=== PATIENT | female | born 1940 | race Caucasian/White ===

== ENCOUNTER 2018-01-23 18:12 | Inpatient (IN) | END 2018-01-25 14:25 | disposition home or self-care (01) | DRG 392 ==

== ENCOUNTER 2018-01-30 15:02 | Emergency (ER) | END 2018-01-30 19:08 | disposition home or self-care (01) ==

== ENCOUNTER 2018-05-19 12:56 | Inpatient (IN) | payer MEDICARE, OTHER ==
[~2018-05-19] VITALS: Ht 162.6 cm; Wt 68.0 kg
[~2018-05-19 12:56] MED LIST: AMLO5TAB4 PO; ASPI-817 PO; CHOL500010 PO; CIPR500T4 PO; CLON1TAB13 PO; CYAN-23 PO; DONE23TA12 PO; DULO60CA59 PO; LEVO50TA7 PO; MEMA10TA PO; METF100010 PO; METR500T PO; OLME1TAB83 PO; QUET25TA33 PO
[2018-05-19] MEDS ORDERED: THIAMINE 100 MG TAB PO STA (13:07)
--- NOTE | 2018-05-19 13:46 | ERD ---
ER Documentation Chief Complaint Chief Complaint BIB RA39: ALOC; 'may have taken double dose of home meds' per family HPI 77-year-old female history of diabetes, hypertension, Alzheimer's disease, diverticulitis, depression and remote TIA brought to the ED via rescue ambulance for evaluation of altered mental status. Patient was last seen normal when she went to sleep on the couch at approximately 1 AM. Patient was found appr oximately 45 minutes prior to arrival not responding normally. Family suspects the patient had taken an overdose of her antihypertensive and/or diabetic medication but this is not confirmed. Patient found by paramedics sitting on the couch not responding to verbal stimuli but moving all extremities and localizing pain. Prehospital Accu-Chek was 110 mg/dL. Patient is unable to provide any further history due to clinical condition and cognitive impairment. ROS Review of systems unobtainable except as per HPI due to the patient's cognitive impairment. Medications Home Meds Reported Medications Donepezil* (Donepezil*) 23 Mg Tablet, 23 MG PO DAILY, #30 TAB 01/30/18 Olmesartan/Hydrochlorothiazide (Olmesartan-Hctz 40-12.5 mg Tab) 1 Each Tablet, 1 EACH PO DAILY, TAB 01/30/18 Amlodipine Besylate* (Norvasc*) 5 Mg Tablet, 5 MG PO DAILY, TAB 01/30/18 Cholecalciferol (Vitamin D3) 5,000 Unit Tablet, 5000 UNIT PO DAILY, TAB 01/30/18 Metformin Hcl* (Metformin Hcl*) 1,000 Mg Tablet, 1000 MG PO WITH BREAKFAST DINNE, #60 TAB 01/30/18 Levothyroxine Sodium* (Levothyroxine Sodium*) 50 Mcg Tablet, 50 MCG PO BEFORE BREAKFAST, #30 TAB 01/30/18 Duloxetine Hcl* (Duloxetine Hcl*) 60 Mg Capsule.dr, 60 MG PO QHS, #30 CAP 01/30/18 Memantine* (Namenda*) 10 Mg Tablet, 10 MG PO BID, #60 TAB 01/30/18 Quetiapine Fumarate* (Quetiapine Fumarate*) 25 Mg Tablet, 25 MG PO HS, TAB 01/30/18 Aspirin* (Aspirin* EC) 81 Mg Tablet.dr, 81 MG PO DAILY, TAB 01/30/18 Clonazepam* (Clonazepam*) 1 Mg Tablet, 1 MG PO QHS PRN for ANXIETY, TAB 01/30/18 Discontinued Reported Medications Cyanocobalamin (Vitamin B-12) (Vitamin B-12) 1,000 Mcg Capsule, 1000 MCG PO DAILY, CAP 01/30/18 Discontinued Scripts Metronidazole* (Flagyl*) 500 Mg Tablet, 500 MG PO TID for 7 Days, #21 TAB Prov:JD DESAI 01/25/18 Ciprofloxacin Hcl* (Ciprofloxacin Hcl*) 500 Mg Tablet, 500 MG PO BID@06,18 for 7 Days, #14 TAB Prov:JD DESAI 01/25/18 Allergies Allergies: Coded Allergies: No Known Drug Allergy (Verified Allergy, Mild, 05/19/18) PMhx/Soc Reviewed in chart. As per HPI. Lives with family. History of Surgery: No Anesthesia Reaction: No Hx Neurological Disorder: No Hx Respiratory Disorders: No Hx Cardiac Disorders: Yes (htn) Hx Psychiatric Problems: Yes (depression, alzheimer) Hx Miscellaneous Medical Probl: Yes (dm) Hx Alcohol Use: No Hx Substance Use: No Hx Tobacco Use: No FmHx Mother: Diabetes, coronary artery disease and lung cancer. Daughter: Diabetes and coronary artery disease. Physical Exam Vitals Temperature: 99.3. Pulse: 77. Respiration: 16. Blood pressure: 121/61. O2 saturation 96% on room air. Physical Exam Const: Localizes pain. GCS: 2/2/5 Head: Atraumatic Eyes: Pupils equal reactive to light, extraocular movements are intact. Normal Conjunctiva ENT: Normal External Ears, Nose and Mouth. Neck: Carotids 2+ bilaterally without bruits. No lymphadenopathy or masses. No thyroid goiter. No meningismus. Resp: Breath sounds are equal and clear to auscultation bilaterally Cardio: Regular rate and rhythm, no murmurs Abd: Soft, obese, non tender, non distended. No rebound or guarding. Normal bowel sounds Skin: No petechiae or rashes Back: No midline tenderness, deformity or step-off. Ext: No cyanosis, or edema. Pulses 4+ in all extremities. Neur: Localizes pain. GCS 9. DTRs are symmetrical. Physical examination is limited due to the constraints imposed by the patient's cognitive impairment. Result Diagram: 05/20/18 0505 05/20/18 0505 Results 24 hrs Laboratory Tests Test 05/19/18 13:07 05/19/18 13:08 05/19/18 13:12 05/19/18 13:14 Urine Color YELLOW Urine Clarity SLIGHTLY CLOUDY Urine pH 5.0 Urine Specific 1.017 [place] Urine Ketones NEGATIVE mg/dL Urine Nitrite NEGATIVE mg/dL Urine Bilirubin NEGATIVE mg/dL Urine NEGATIVE mg/dL Urobilinogen Urine Leukocyte NEGATIVE Keren/ul Esterase Urine Microscopic 0 /HPF RBC Urine Microscopic 2 /HPF WBC Urine Bacteria FEW /HPF Urine Hemoglobin NEGATIVE mg/dL Urine Glucose NEGATIVE mg/dL Urine Total NEGATIVE mg/dl Protein Urine Opiates Negative Screen Urine Negative Barbiturates Urine Negative Amphetamines Screen Urine Negative Benzodiazepines Screen Urine Cocaine Negative Screen Urine Negative Cannabinoids Bedside Glucose 94 mg/dL White Blood Count 8.3 10^3/ul Red Blood Count 4.10 10^6/ul Hemoglobin 12.3 g/dl Hematocrit 39.3 % Mean Corpuscular 95.9 fl Volume Mean Corpuscular 30.0 pg Hemoglobin Mean Corpuscular 31.3 g/dl Hemoglobin Concen t Red Cell 13.6 % Distribution Width Platelet Count 154 10^3/UL Mean Platelet 13.2 fl Volume Immature 0.400 % Granulocytes % Neutrophils % 50.9 % Lymphocytes % 34.1 % Monocytes % 10.2 % Eosinophils % 3.6 % Basophils % 0.8 % Nucleated Red 0.0 /100WBC Blood Cells % Immature 0.030 10^3/ul Granulocytes # Neutrophils # 4.2 10^3/ul Lymphocytes # 2.8 10^3/ul Monocytes # 0.8 10^3/ul Eosinophils # 0.3 10^3/ul Basophils # 0.1 10^3/ul Nucleated Red 0.0 10^3/ul Blood Cells # Prothrombin Time 12.6 Sec Prothrombin Time 1.0 Ratio INR International 0.93 Normalized Ratio Activated 30.4 Sec Partial Thrombopl ast Time Sodium Level 138 mmol/L Potassium Level 4.5 mmol/L Chloride Level 104 mmol/L Carbon Dioxide 24 mmol/L Level Anion Gap 10 Blood Urea 19 mg/dl Nitrogen Creatinine 0.93 mg/dl Est Glomerular mL/min Filtrat Rate mL/min Glucose Level 97 mg/dl Calcium Level 9.5 mg/dl Total Bilirubin 0.1 mg/dl Direct Bilirubin 0.00 mg/dl Indirect 0.1 mg/dl Bilirubin Aspartate Amino 27 IU/L Transf (AST/SGOT) Alanine 15 IU/L Aminotransferase (ALT/SGPT) Alkaline 70 IU/L Phosphatase Troponin I < 0.012 ng/ml Total Protein 7.3 g/dl Albumin 4.1 g/dl Globulin 3.20 g/dl Albumin/Globulin 1.28 Ratio Salicylates Level < 1.0 mg/dl Acetaminophen < 10.0 ug/ml Level Ethyl Alcohol < 10.0 mg/dl Level POC Venous 2.5 mmol/L Lactate Test 05/19/18 15:23 POC Venous 2.5 mmol/L Lactate Current Medications Medications Dose Sig/Shena Start Time Status Last (Trade) Ordered Route PRN Stop Time Admin Dose Reason Admin Thiamine 100 mg ONCE STAT 05/19/18 DC HCl PO 13:07 (Vitamin B1) 05/19/18 13:54 Thiamine HCl 101 ml @ Q2H2M ONCE 05/19/18 DC 100 50 mls/hr IVPB 13:52 mg/Sodium 05/19/18 14:24 Chloride Sodium 500 ml @ Q1H STAT 05/19/18 DC 05/19/18 Chloride 500 mls/hr IV 14:16 14:32 05/19/18 15:15 Aspirin 325 mg ONCE ONCE 05/19/18 DC 05/19/18 (Aspirin) PO 14:30 14:32 05/19/18 14:31 Procedures/MDM DOCUMENTS REVIEWED: ED nurse, prior ED and prior admission in 2009 for TIA. EKG: Time: 1257. Sinus rhythm. Ventricular rate 67. Normal OK and QRS. No acute ST-T wave changes. No ectopy. T wave inversions lead V1 and V2. My Interpretation IMAGING: PROCEDURE: XR Chest. CLINICAL INDICATION: Altered mental status . Dyspnea TECHNIQUE: Single frontal chest x-ray. COMPARISON: None. FINDINGS: The lungs are clear of acute infiltrates, edema, effusions, or masses. Calcific atherosclerosis of the aorta is present.. There is mild cardiomegaly.. Degenerative disk changes of the spine are present. . IMPRESSION: No acute cardiopulmonary disease. Mild cardiomegaly with calcified aorta. RPTAT: QQ .Marshall Holman MD, MD Date Time Electronically viewed and signed by .Marshall Holman MD, MD on 05/19/2018 13:32 .L/ PROCEDURE: Noncontrast CT Head. CLINICAL INDICATION: Altered level of consciousness. TECHNIQUE: Noncontrast CT of the head was obtained. The administered radiation dose was CTDI vol = 39.46 mGy, DLP = 634.23 mGy-cm. One or more of the following dose reduction techniques were used: Automated exposure control, Ad justment of the mA and/or kV according to patient size, or Use of iterative reconstruction technique. DICOM images are available. COMPARISON: There are no similar studies submitted for comparison. FINDINGS: There is moderate generalized cerebral volume loss. There is mild periventricular hypoattenuation suggesting chronic microvascular ischemic changes. There are mild vascular calcifications within the intracranial carotid arteries. There is a chronic left thalamic lacunar infarction. There is no loss of hirsch-white differentiation to suggest acute territorial infarction. There is no acute intracranial hemorrhage or extra-axial fluid collection. There is no mass effect. No midline shift is identified. The patient is status post bilateral lens surgery. There is complete right sphenoid sinus mucosal thickening with mucoperiosteal thickening suggesting chronic sinusitis. No destructive osseous lesion is identified. IMPRESSION: 1. No acute intracranial hemorrhage or extra-axial fluid collection. 2. Moderate generalized cerebral volume loss. 3. Mild chronic microvascular ischemic changes. 4. Chronic left thalamic lacunar infarction. 5. Chronic right sphenoid sinusitis. Further findings as detailed above. RPTAT: HVF .Fermin Mendez MD, MD Date Time Electronically viewed and signed by .Fermin Mendez MD, on 05/19/2018 13:29 .F/ ED COURSE: 14:00. Patient is alert and responsive. Further history obtained Via Internet translation service. Patient patient reports pain in her "soul". Denies headache, visual changes, focal weakness or numbness. Denies complains of pain in the area where a sternal rub was performed but no chest pain, palpitations or shortness of breath. No abdominal pain, nausea, vomiting, diarrhea or constipation. Denies dysuria or polyuria. Patient patient is oriented to person and place. Admits that she has a bad memory and does not recall what happened earlier today or events leading up to her arrival in the hospital. 15:04. Family has arrived and provided supplemental history. Patient was in her usual state of health last night when she went to sleep at approximately 1 AM on the couch. Patient was unarousable when family attempted to wake her around noon so they called 911. She currently seems back to baseline. [employer] DECISION MAKIN-year-old female history of diabetes, hypertension, Alzheimer's disease, diverticulitis, depression and remote TIA brought to the ED via rescue ambulance for evaluation of altered mental status. CBC reveals no evidence of leukocytosis, anemia or thrombocytopenia. Chemistry is negative for electrolyte abnormalities, renal insufficiency or hyper/hypoglycemia. Urinalysis is negative for infection. Chest x-ray reveals no evidence of congestive heart failure or pneumonia. EKG to evaluate for pneumonia and congestive heart failure is unremarkable. CT scan of the brain admit to evaluate for bleed, infarct, mass and hydrocephalus reveals atrophy and chronic left thalamic lacunar infarct but is unremarkable for an acute process. Patient presents with acute encephalopathy of uncertain etiology possibly related to her underlying dementia. In the ED she returned to baseline. No focal deficit, symptoms or signs of CVA/TIA. No evidence of any acute infectious process or criteria for systemic inflammatory response syndrome or sepsis. History of hypothyroidism and TSH is pending but myxedema is unlikely. No hypoglycemia. Admit to telemetry for further evaluation and management. PATIENT CARE TRANSITIONED: Time: 15:20, Dr. Angel. Counseled patient and family regarding diagnosis, diagnostic results and plan for admission. Departure Diagnosis: Primary Impression: Acute encephalopathy Additional Impressions: Diabetes mellitus type 2 in obese Chronic dementia Dementia behavioral disturbance: without behavioral disturbance Qualified Codes: F03.90 - Unspecified dementia without behavioral disturbance Essential hypertension History of hypothyroidism Condition: Serious STEVEN CALDERON MD May 19, 2018 13:46
[2018-05-19] MEDS ORDERED: THIAMINE 100 MG in SOD CHLORIDE 0.9% 100 ML IVPB ONE (13:52)
[2018-05-19] MEDS ORDERED: SOD CHLORIDE 0.9% 500 ML IV STA (14:16)
[2018-05-19] MEDS ORDERED: ASPIRIN 325 MG TAB PO ONE (14:30)
[2018-05-19] MEDS ORDERED: ONDANSETRON 4 MG INJ IV PRN ×3 (15:30→20:00)
[2018-05-19] MEDS ORDERED: ACETAMINOPHEN 325 MG TAB PO PRN ×3 (15:30→20:00)
[2018-05-19 16:32] VITALS: BP 134/65; PULSE 72; RESP 18
[2018-05-19 16:47] VITALS: Ht 162.6 cm; Wt 68.0 kg
[2018-05-19 17:59] VITALS: PULSE 66
--- NOTE | 2018-05-19 18:34 | NUR ---
ADMISSION NOTES PATIENT WAS ADMITTED AT THE TELEMETRY, AOX 1. NO SOB NOTED, DENIES PAIN AND DISCOMFORT. LACTIC ACID WENT UP FROM 2.[address] LUNA REGARDING LATEST RESULT. AWAITING FOR RESPONSE. Addendum: 05/19/18 at 1852 by GREGORY BROWN RN DR LUNA STATED TO NOTIFY DR. MARQUEZ. WAS NOTIFIED REGARDING LACTIC ACID . BOTH MD'S ( JIMMY AND CHERYL AWARE.
[2018-05-19] MEDS ORDERED: SOD CHLORIDE 0.9% 1,000 ML IV SCH (19:42)
[2018-05-19 19:43] VITALS: BP 131/63; PULSE 63; RESP 18
--- NOTE | 2018-05-19 19:44 | HP ---
Date/Time of Note Date/Time of Note DATE: 05/19/18 TIME: 19:36 Assessment/Plan VTE Prophylaxis SCD applied (from Nsg): Yes Pharmacological prophylaxis: LMWH Pharm contraindication: other Lines/Catheters IV Catheter Type (from Nrsg): Peripheral IV Urinary Cath still in place: No Assessment/Plan Hospital Course 1. Acute encephalopathy on chronic dementia Diagnostics and labs are negative except for lactic acid which is elevated Empiric Rocephin for possible UTI IV fluids Follow-up on cultures Patient mentation has improved per family 2. Diabetes Continue home regimen, sliding scale 3. Hypothyroidism Continue home meds 4. Hypertension Continue home meds Prophylaxis: Lovenox Result Diagram: 05/19/18 1312 05/19/18 1312 Results 24hrs Laboratory Tests Test 05/19/18 13:07 05/19/18 13:08 05/19/18 13:12 05/19/18 13:14 Urine Color YELLOW Urine Clarity SLIGHTLY CLOUDY A Urine pH 5.0 Urine Specific 1.017 [place] Urine Ketones NEGATIVE Urine Nitrite NEGATIVE Urine Bilirubin NEGATIVE Urine NEGATIVE Urobilinogen Urine Leukocyte NEGATIVE Esterase Urine Microscopic 0 RBC Urine Microscopic 2 WBC Urine Bacteria FEW A Urine Hemoglobin NEGATIVE Urine Glucose NEGATIVE Urine Total NEGATIVE Protein Urine Opiates Negative Screen Urine Negative Barbiturates Urine Negative Amphetamines Screen Urine Negative Benzodiazepines Screen Urine Cocaine Negative Screen Urine Negative Cannabinoids Bedside Glucose 94 White Blood Count 8.3 # Red Blood Count 4.10 L Hemoglobin 12.3 Hematocrit 39.3 Mean Corpuscular 95.9 Volume Mean Corpuscular 30.0 Hemoglobin Mean Corpuscular 31.3 L Hemoglobin Concen t Red Cell 13.6 Distribution Width Platelet Count 154 # Mean Platelet 13.2 H Volume Immature 0.400 Granulocytes % Neutrophils % 50.9 Lymphocytes % 34.1 Monocytes % 10.2 Eosinophils % 3.6 Basophils % 0.8 Nucleated Red 0.0 Blood Cells % Immature 0.030 Granulocytes # Neutrophils # 4.2 Lymphocytes # 2.8 Monocytes # 0.8 Eosinophils # 0.3 Basophils # 0.1 Nucleated Red 0.0 Blood Cells # Prothrombin Time 12.6 Prothrombin Time 1.0 Ratio INR International 0.93 Normalized Ratio Activated 30.4 Partial Thrombopl ast Time Sodium Level 138 Potassium Level 4.5 Chloride Level 104 Carbon Dioxide 24 Level Anion Gap 10 Blood Urea 19 Nitrogen Creatinine 0.93 Est Glomerular Filtrat Rate mL/min Glucose Level 97 Calcium Level 9.5 Total Bilirubin 0.1 L Direct Bilirubin 0.00 Indirect 0.1 Bilirubin Aspartate Amino 27 Transf (AST/SGOT) Alanine 15 Aminotransferase (ALT/SGPT) Alkaline 70 Phosphatase Troponin I < 0.012 Total Protein 7.3 Albumin 4.1 Globulin 3.20 Albumin/Globulin 1.28 Ratio Salicylates Level < 1.0 L Acetaminophen < 10.0 L Level Ethyl Alcohol < 10.0 H Level POC Venous 2.5 *H Lactate Test 05/19/18 15:23 05/19/18 17:18 POC Venous 2.5 *H Lactate Lactic Acid Level 2.8 *H HPI/ROS Admit Date/Time Admit Date/Time May 19, 2018 at 15:23 Hx of Present Illness Patient is a 77-year-old [place] female with a history of dementia, hyp ertension, hypothyroidism, diabetes and diverticulitis. Patient presents with acute mental status changes relative to her baseline. In the ER patient's mentation did improve, workup including chest x-ray, CT brain and labs were negative. According to family patient still slightly confused relative to her baseline but has improved. Patient is unable to provide any history and history is obtained from previous documentation. ROS Confused PMH/Family/Social Past Medical History As per HPI Medications Current Medications Influenza Virus Vaccine Quadrival (Fluzone) 0.5 ml ONCE ONCE IM* ; Start at 10:00; Stop 05/20/18 at 10:01 Coded Allergies: No Known Drug Allergy (Verified Allergy, Mild, 05/19/18) Family History Significant Family History: no pertinent family hx Social History Smoking Status: Never smoker Exam/Review of Systems Vital Signs Vitals Vital Signs Date Temp Pulse Resp B/P (MAP) Pulse Ox O2 O2 Flow FiO2 Time Delivery Rate 05/19/18 66 17:59 05/19/18 97.7 18 134/65 94 Room Air 16:32 (88) Exam Psych: confusion Respiratory: clear to auscultation Cardiovascular: regular rate and rhythm Gastrointestinal: soft; No distended Musculoskeletal: nl extremities to inspection LUNA LUNA May 19, 2018 19:44
[2018-05-19 20:00] VITALS: PULSE 59
[2018-05-19] MEDS ORDERED: MAGNESIUM HYDROXIDE 30ML CUP PO PRN (20:00)
[2018-05-19] MEDS ORDERED: clonAZEPAM 0.5 MG TAB PO PRN (20:00)
[2018-05-19] MEDS ORDERED: morphine 2 MG INJ IV PRN (20:00)
[2018-05-19] MEDS ORDERED: DOCUSATE SODIUM 100 MG CAP PO PRN ×2 (20:00)
[2018-05-19] MEDS ORDERED: GLUCAGON 1 MG INJ IM PRN (20:00)
[2018-05-19] MEDS ORDERED: BISACODYL (EC) 5 MG TAB PO PRN (20:00)
[2018-05-19] MEDS ORDERED: NACL 0.9% 3 ML SYG IV SCH ×2 (20:00)
[2018-05-19] MEDS ORDERED: ACETAMINOPHEN 650 MG SUPP PR PRN (20:00)
[2018-05-19] MEDS ORDERED: GLUCOSE GEL 15 GRAM TUBE PO PRN ×2 (20:00)
[2018-05-19] MEDS ORDERED: CEFTRIAXONE 1 GM/50 ML (PMX) 50 ML IVPB SCH (20:00)
[2018-05-19] MEDS ORDERED: GLUCOSE GEL 15 GRAM TUBE BUCCAL PRN (20:00)
[2018-05-19] MEDS ORDERED: HYDROCODONE/APAP (5/325) TAB PO PRN ×2 (20:00)
[2018-05-19] MEDS ORDERED: CYANOCOBALAMIN 500 MCG TAB PO SCH (20:00)
[2018-05-19] MEDS ORDERED: DEXTROSE 50% 50 ML SYRINGE IV PRN ×2 (20:00)
[2018-05-19] MEDS ORDERED: morphine 4 MG/ML VIAL IV PRN (20:13)
[2018-05-19] MEDS: INSULIN ASPART [NOVOLOG] 3 ML PEN SC SCH (20:25)
[2018-05-19] MEDS: SOD CHLORIDE 0.45% 1,000 ML IV SCH (20:54)
[2018-05-19] MEDS: MEMANTINE 10 MG TAB PO SCH (20:55)
[2018-05-19] MEDS ORDERED: DULOXETINE 30 MG CAP DR PO SCH (21:00)
[2018-05-19] MEDS ORDERED: QUETIAPINE 25 MG TAB PO SCH (21:00)
[2018-05-19 23:43] VITALS: BP_SYST 138; BP_SYST 144; BP_SYST 146; BP_DIAS 63; BP_DIAS 65; BP_DIAS 84; PULSE 87; RESP 18
[2018-05-20] VITALS: PULSE 62
[2018-05-20] MEDS ORDERED: ACCU-CHEK XX SCH (02:00)
--- NOTE | 2018-05-20 03:14 | NUR ---
NOTES RESTING ON BED AND DR LUNA AND DR VERDUZCO INFORMED THEM THAT THE PT NEEDS ADMISSION ORDER. ADMISSION NOTED AND CARRIED OUT SOON IT WAS IN THE COMPUTER. ORTHOSTATIC B/P DONE. NO CHANGES NOTED. IV FLUID STARTED AND PT INSTRUCTED TO CALL THE NURSE EVERY SHE NEEDS TO GET UP.
[2018-05-20 03:55] VITALS: BP 134/64; PULSE 67; RESP 18
[2018-05-20 04:00] VITALS: PULSE 71
[2018-05-20] MEDS: SOD CHLORIDE 0.45% 1,000 ML IV SCH (05:41)
--- NOTE | 2018-05-20 06:02 | NUR ---
NOTES FOR MRI OF THE BRAIN TODAY. ALL HER NEEDS ATTENDED AND ANTICIPATED.
[2018-05-20] MEDS ORDERED: LEVOTHYROXINE 50 MCG TAB PO SCH (07:00)
[2018-05-20 07:28] VITALS: BP 138/68; PULSE 62; RESP 20
[2018-05-20 08:00] VITALS: PULSE 63
[2018-05-20] MEDS: INSULIN ASPART [NOVOLOG] 3 ML PEN SC SCH ×2 (08:00→12:00)
[2018-05-20] MEDS ORDERED: metFORMIN 500 MG TAB PO SCH (08:00)
--- NOTE | 2018-05-20 08:41 | PN ---
Date/Time of Note Date/Time of Note DATE: 05/20/18 TIME: 08:41 Assessment/Plan VTE Prophylaxis Risk score (from [facility] [place])>0 risk: 4 SCD applied (from [facility] [place]): No SCD contraindicated: patient refusal Pharmacological prophylaxis: LMWH Lines/Catheters IV Catheter Type (from [facility] Peripheral IV Urinary Cath still in place: No Assessment/Plan Assessment/Plan 1. Acute encephalopathy on chronic dementia- resolved - Patient back to baseline per daughter and refusing all treatment. Discussed possible TIA and family aware need to continue on aspirin. Advised to use fish oil as well given elevated TG - no signs of infection given UA negative, remains afebrile, and nl WBC - influenza negative as well 2. Diabetes - Continue on metformin, sliding scale 3. Hypothyroidism - continue levothyroxine 4. Hypertension - stable. continue home meds 5. Disposition - Medically stable for discharge home Result Diagram: 05/20/18 0505 05/20/18 0505 Results 24hrs Laboratory Tests Test 05/19/18 13:07 05/19/18 13:08 05/19/18 13:12 05/19/18 13:14 Urine Color YELLOW Urine Clarity SLIGHTLY CLOUDY A Urine pH 5.0 Urine Specific 1.017 [place] Urine Ketones NEGATIVE Urine Nitrite NEGATIVE Urine Bilirubin NEGATIVE Urine NEGATIVE Urobilinogen Urine Leukocyte NEGATIVE Esterase Urine Microscopic 0 RBC Urine Microscopic 2 WBC Urine Bacteria FEW A Urine Hemoglobin NEGATIVE Urine Glucose NEGATIVE Urine Total NEGATIVE Protein Urine Opiates Negative Screen Urine Negative Barbiturates Urine Negative Amphetamines Screen Urine Negative Benzodiazepines Screen Urine Cocaine Negative Screen Urine Negative Cannabinoids Bedside Glucose 94 White Blood Count 8.3 # Red Blood Count 4.10 L Hemoglobin 12.3 Hematocrit 39.3 Mean Corpuscular 95.9 Volume Mean Corpuscular 30.0 Hemoglobin Mean Corpuscular 31.3 L Hemoglobin Concen t Red Cell 13.6 Distribution Width Platelet Count 154 # Mean Platelet 13.2 H Volume Immature 0.400 Granulocytes % Neutrophils % 50.9 Lymphocytes % 34.1 Monocytes % 10.2 Eosinophils % 3.6 Basophils % 0.8 Nucleated Red 0.0 Blood Cells % Immature 0.030 Granulocytes # Neutrophils # 4.2 Lymphocytes # 2.8 Monocytes # 0.8 Eosinophils # 0.3 Basophils # 0.1 Nucleated Red 0.0 Blood Cells # Prothrombin Time 12.6 Prothrombin Time 1.0 Ratio INR International 0.93 Normalized Ratio Activated 30.4 Partial Thrombopl ast Time Sodium Level 138 Potassium Level 4.5 Chloride Level 104 Carbon Dioxide 24 Level Anion Gap 10 Blood Urea 19 Nitrogen Creatinine 0.93 Est Glomerular Filtrat Rate mL/min Glucose Level 97 Calcium Level 9.5 Total Bilirubin 0.1 L Direct Bilirubin 0.00 Indirect 0.1 Bilirubin Aspartate Amino 27 Transf (AST/SGOT) Alanine 15 Aminotransferase (ALT/SGPT) Alkaline 70 Phosphatase Troponin I < 0.012 Total Protein 7.3 Albumin 4.1 Globulin 3.20 Albumin/Globulin 1.28 Ratio Salicylates Level < 1.0 L Acetaminophen < 10.0 L Level Ethyl Alcohol < 10.0 H Level POC Venous 2.5 *H Lactate Test 05/19/18 15:23 05/19/18 17:18 05/19/18 20:06 05/20/18 05:05 POC Venous 2.5 *H Lactate Lactic Acid Level 2.8 *H Bedside Glucose 100 White Blood Count 9.5 Red Blood Count 3.74 L Hemoglobin 11.2 L Hematocrit 35.4 L Mean Corpuscular 94.7 Volume Mean Corpuscular 29.9 Hemoglobin Mean Corpuscular 31.6 L Hemoglobin Concen t Red Cell 13.5 Distribution Width Platelet Count 155 Mean Platelet 14.0 H Volume Immature 0.300 Granulocytes % Neutrophils % 61.2 Lymphocytes % 25.3 Monocytes % 9.2 Eosinophils % 3.3 Basophils % 0.7 Nucleated Red 0.0 Blood Cells % Immature 0.030 Granulocytes # Neutrophils # 5.8 Lymphocytes # 2.4 Monocytes # 0.9 Eosinophils # 0.3 Basophils # 0.1 Nucleated Red 0.0 Blood Cells # Prothrombin Time 13.4 Prothrombin Time 1.0 Ratio INR International 1.01 Normalized Ratio Sodium Level 135 Potassium Level 4.6 Chloride Level 102 Carbon Dioxide 26 Level Anion Gap 7 Blood Urea 17 Nitrogen Creatinine 0.87 Est Glomerular Filtrat Rate mL/min Glucose Level 87 Hemoglobin A1c 5.7 Calcium Level 9.2 Phosphorus Level 4.1 Magnesium Level 1.3 L Triglycerides 287 H Level Cholesterol Level 184 LDL Cholesterol, 74 Calculated HDL Cholesterol 53 Cholesterol/HDL 3.4 Ratio Vitamin B12 Level > 1000 H Test 05/20/18 07:57 Bedside Glucose 87 Subjective 24 Hr Interval Summary Free Text/Dictation Patient back to baseline and requesting to go home. Family at bedside and state s she is comfortably taking her home given patient refusing all treatment. Discussed possible TIA and need to continue aspirin and control diet. No acute overnight events. Exam/Review of Systems Vital Signs Vitals Vital Signs Date Temp Pulse Resp B/P (MAP) Pulse Ox O2 O2 Flow FiO2 Time Delivery Rate 05/20/18 63 08:00 05/20/18 97.8 20 138/68 98 Room Air 07:28 (91) Intake and Output 05/19/18 05/19/18 05/20/18 1515:00 23:00 07:00 IntakeIntake Total 450 ml 1050 ml BalanceBalance 450 ml 1050 ml Exam General: Patient is laying in bed, no acute distress, agitated Head: Normocephalic atraumatic Respiratory: Clear to auscultation bilaterally. no wheezing or rhonchi Cardiovascular: regular rate and rhythm, no obvious murmurs Gastrointestinal: soft, non-tender to palpation, nondistended, bowel sounds heard. Neurological: Moves all extremities spontaneously. no focal deficits appreciated Skin: No new skin lesions Medications Medications Current Medications Influenza Virus Vaccine Quadrival (Fluzone) 0.5 ml ONCE ONCE IM* ; Start 05/20/18 at 10:00; Stop 05/20/18 at 10:01 IV Flush (NS 3 ml) 3 ml PER PROTOCOL IV ; Start 05/19/18 at 20:00 Ondansetron HCl (Zofran Inj) 4 mg Q6H PRN IV NAUSEA AND/OR VOMITING; Start 05/19/18 at 20:00 Acetaminophen (Tylenol Tab) 650 mg Q6H PRN PO PAIN LEVEL 1-3 OR FEVER; Start 05/19/18 at 20:00 Acetaminophen/ Hydrocodone Bitart (Toney (5/325)) 1 tab Q6H PRN PO MODERATE PAIN LEVEL 4-6; Start 05/19/18 at 20:00 Docusate Sodium (Colace) 100 mg Q12H PRN PO CONSTIPATION; Start 05/19/18 at 20:00 Enoxaparin Sodium (Lovenox) 40 mg DAILY SC ; Start 05/20/18 at 09:00 Ceftriaxone Sodium 50 ml @ 100 mls/hr Q24H IVPB Last administered on 05/19/18at 20:54; Admin Dose 100 MLS/HR; Start 05/19/18 at 20:00 Amlodipine Besylate (Norvasc) 5 mg DAILY PO ; Start 05/20/18 at 09:00 Aspirin (Halfprin) 81 mg DAILY PO ; Start 05/20/18 at 09:00 Cholecalciferol (Vitamin D) 5,000 unit DAILY PO ; Start 05/20/18 at 09:00 Clonazepam (Klonopin) 1 mg QHS PRN PO ANXIETY; Start 05/19/18 at 20:00 Duloxetine HCl (Cymbalta) 60 mg QHS PO Last administered on 05/19/18at 20:55; Admin Dose 60 MG; Start 05/19/18 at 21:00 Levothyroxine Sodium (Synthroid) 50 mcg BEFORE BREAKFAST PO ; Start 05/20/18 at 07:00 Memantine (Namenda) 10 mg BID PO Last administered on 05/19/18at 20:55; Admin Dose 10 MG; Start 05/19/18 at 21:00 Metformin HCl (Glucophage) 1,000 mg WITH BREAKFAST DINNE PO ; Start 05/20/18 at 08:00 Quetiapine Fumarate (Seroquel) 25 mg HS PO Last administered on 05/19/18at 20:55; Admin Dose 25 MG; Start 05/19/18 at 21:00 Miscellaneous Information 23 mg DAILY PO ; Start 05/20/18 at 09:00; Status UNV Losartan Potassium (Cozaar) 100 mg DAILY PO ; Start 05/20/18 at 09:00 Diagnostic Test (Pha) (Accu-Chek) 1 ea 02 XX ; Start 05/20/18 at 02:00 Insulin Aspart (Novolog Insulin Pen) NOVOLOG *MILD* ALGORITHM WITH MEALS BEDTIME SC ; Start 05/19/18 at 21:00 Miscellaneous Information 1 ea NOTE XX ; Start 05/19/18 at 20:00 Glucose (Glutose) 15 gm Q15M PRN PO DECREASED GLUCOSE; Start 05/19/18 at 20:00 Glucose (Glutose) 22.5 gm Q15M PRN PO DECREASED GLUCOSE; Start 05/19/18 at 20:00 Dextrose (D50w Syringe) 25 ml Q15M PRN IV DECREASED GLUCOSE; Start 05/19/18 at 20:00 Dextrose (D50w Syringe) 50 ml Q15M PRN IV DECREASED GLUCOSE; Start 05/19/18 at 20:00 Glucagon (Glucagen) 1 mg Q15M PRN IM DECREASED GLUCOSE; Start 05/19/18 at 20:00 Glucose (Glutose) 15 gm Q15M PRN BUCCAL DECREASED GLUCOSE; Start 05/19/18 at 20:00 Sodium Chloride 1,000 ml @ 100 mls/hr Q10H IV Last administered on 05/20/18at 05:41; Admin Dose 100 MLS/HR; Start 05/19/18 at 19:40 Acetaminophen (Tylenol Supp) 650 mg Q6H PRN SC PAIN LEVEL 1-3 OR FEVER; Start 05/19/18 at 20:00 Magnesium Hydroxide (Milk Of Mag) 30 ml DAILY PRN PO CONSTIPATION; Start 05/19/18 at 20:00 Bisacodyl (Dulcolax) 5 mg DAILY PRN PO CONSTIPATION; Start 05/19/18 at 20:00 Morphine Sulfate (morphine) 2 mg Q4H PRN IV SEVERE PAIN LEVEL 7-10; Start 05/19/18 at 20:13 Hydrochlorothiazide (Hydrochlorothiazide) 12.5 mg DAILY PO ; Start 05/20/18 at 09:00 HERVE WEST MD May 20, 2018 08:41
[2018-05-20] MEDS ORDERED: ENOXAPARIN 40 MG/0.4 ML SYG SC SCH (09:00)
[2018-05-20] MEDS ORDERED: AMLODIPINE 5 MG TAB PO SCH (09:00)
[2018-05-20] MEDS ORDERED: CHOLECALCIFEROL 1,000 UNIT TAB PO SCH (09:00)
[2018-05-20] MEDS ORDERED: MAGNESIUM SULFATE 4 GM/100 ML 100 ML IVPB ONE (09:00)
[2018-05-20] MEDS ORDERED: NON-FORMULARY/PATIENT OWN MED (Donepezil* 23 MG) PO SCH (09:00)
[2018-05-20] MEDS ORDERED: ASPIRIN (EC) 81 MG TAB PO SCH (09:00)
[2018-05-20] MEDS ORDERED: HYDROCHLOROTHIAZIDE 12.5 MG CAP PO SCH (09:00)
[2018-05-20] MEDS ORDERED: LOSARTAN 50 MG TAB PO SCH (09:00)
[2018-05-20] MEDS: MEMANTINE 10 MG TAB PO SCH (09:05)
[2018-05-20] MEDS ORDERED: MAGNESIUM OXIDE 400 MG TAB PO ONE (10:30)
--- NOTE | 2018-05-20 10:38 | PDOCDIS ---
Discharge Instructions DIAGNOSIS Discharge Diagnosis 1. Acute encephalopathy on chronic dementia- resolved 2. Diabetes 3. Hypothyroidism 4. Hypertension CONDITION [id number] Patient Condition: [id number] Stable HOME CARE INSTRUCTIONS: [id number] Diet Instructions: [id number] Low Fat /Cholesterol FOLLOW UP/APPOINTMENTS Follow-up Plan 1. Follow up with your primary care physician in 1 week 2. Continue on aspirin and all other home medications 3. It is important to limit intake of greasy, fatty foods since your triglyceride levels are very elevated. It is recommended you take omega/fish oil, up to 3000mg a day 4. If symptoms return or worsen, please go to your nearest emergency department HERVE WEST MD May 20, 2018 10:38
--- NOTE | 2018-05-20 11:21 | NUR ---
PT Evaluation note: S: HPI Per MD note: 77-year-old female history of diabetes, hypertension, Alzheimer's disease, diverticulitis, depression and remote TIA brought to the ED via rescue ambulance for evaluation of altered mental status. Patient was last seen normal after awakening this morning. Patient was found approximately 45 minutes prior to arrival on the couch not responding normally. Family suspects the patient had taken an overdose of her antihypertensive and diabetic medication but this is not confirmed. Patient found by paramedics sitting on the couch not responding to verbal stimuli but moving all extremities and localizing pain. Prehospital Accu-Chek was 110 mg/dL. O: MD order received for PT consult. Cleared by RN in charge to proceed. Anticipating DC home today. Pt agreeable to participate with PT eval, daughter at site and agreeable as well. Pt no c/o pain. PREC: fall prec, minimally impulsive, hx of Alzheimer. PLOF: Patient assisted with ADL due to Alzheimer, handheld assist with transfers and ambulation, there are days when she feels good that she didn't need help from daughter with mobility. Lives with daughter who is the primary care provider and available 20/11 in single story house, no entry steps. Pt doesn't owned DME. CLOF: Patient independent with bed mobility, SBA/CGA for balance and safety due to impulsivity with transfers and ambulation using FWW, slow paced but steady, tolerated about 80 feet. Assessed transfers and ambulation without AD as well however noted to be guarded and at more slower paced., per pt she felt more secured using FWW. follows command. Daughter able to cue pt as needed. A: No further therapy needed upon DC, will need FWW for home use. Will need continue assist at home due to impulsivity for safety. P: DC to nursing and family for general care and ambulation using FWW and with assist for balance and safety. DC PT.
--- NOTE | 2018-05-20 12:40 | NUR ---
RN NOTES: DISCHARGE Discharged instructions discussed with pt's daughter, voiced understanding. IV already removed by pt earlier this shift, cathlon tip intact. Pt left the unit ambulating with daughter and all personal belongings.
--- NOTE | 2018-05-20 12:51 | NUR ---
CM NOTE ATTEMPTED TO SEE PT, PT ALREADY LEFT WILL FOLLOW UP WITH FAMILY LATER TODAY.
--- NOTE | 2018-05-20 17:58 | DS ---
Date/Time of Note Date/Time of Note DATE: 05/20/18 TIME: 17:52 Discharge Summary Admission/Discharge Info Admit Date/Time May 19, 2018 at 15:23 Discharge Date/Time May 20, 2018 at 12:38 Discharge Diagnosis 1. Acute encephalopathy on chronic dementia- resolved 2. Diabetes 3. Hypothyroidism 4. Hypertension Patient Condition: Stable Procedures PROCEDURE: Noncontrast CT Head. CLINICAL INDICATION: Altered level of consciousness. TECHNIQUE: Noncontrast CT of the head was obtained. The administered radiation dose was CTDI vol = 39.46 mGy, DLP = 634.23 mGy-cm. One or more of the following dose reduction techniques were used: Automated exposure control, Adjustment of the mA and/or kV according to patient size, or Use of iterative reconstruction technique. DICOM images are available. COMPARISON: There are no similar studies submitted for comparison. FINDINGS: There is moderate generalized cerebral volume loss. There is mild periventricular hypoattenuation suggesting chronic microvascular ischemic changes. There are mild vascular calcifications within the intracranial carotid arteries. There is a chronic left thalamic lacunar infarction. There is no loss of hirsch-white differentiation to suggest acute territorial infarction. There is no acute intracranial hemorrhage or extra-axial fluid collection. There is no mass effect. No midline shift is identified. The patient is status post bilateral lens surgery. There is complete right sphenoid sinus mucosal thickening with mucoperiosteal thickening suggesting chronic sinusitis. No destructive osseous lesion is identified. IMPRESSION: 1. No acute intracranial hemorrhage or extra-axial fluid collection. 2. Moderate generalized cerebral volume loss. 3. Mild chronic microvascular ischemic changes. 4. Chronic left thalamic lacunar infarction. 5. Chronic right sphenoid sinusitis. Further findings as detailed above. RPTAT: HVF .Fermin Mendez MD, MD Date Time Electronically viewed and signed by .Fermin Mendez MD, MD on 05/19/2018 13:29 PROCEDURE: XR Chest. CLINICAL INDICATION: Altered mental status . Dyspnea TECHNIQUE: Single frontal chest x-ray. COMPARISON: None. FINDINGS: The lungs are clear of acute infiltrates, edema, effusions, or masses. Calcific atherosclerosis of the aorta is present.. There is mild cardiomegaly.. Degenerative disk changes of the spine are present. . IMPRESSION: No acute cardiopulmonary disease. Mild cardiomegaly with calcified aorta. RPTAT: QQ .Marshall Holman MD, Date Time Electronically viewed and signed by .Marshall Holman MD, MD on 05/19/2018 13:32 Hx of Present Illness Patient is a 77-year-old Armenian female with a history of dementia, hypertension, hypothyroidism, diabetes and diverticulitis. Patient presents with acute mental status changes relative to her baseline. In the ER patient's mentation did improve, workup including chest x-ray, CT brain and labs were negative. According to family patient still slightly confused relative to her baseline but has improved. Patient is unable to provide any history and history is obtained from previous documentation. Hospital Course Patient was admitted and CT scan of head was performed which was negative for acute abnormalities. Patients mentation returned to baseline and no signs of active infection causing altered mental status. Patient was refusing all treatment and requested to go home. Discussed plan of care with patients daughter and patient was back to baseline. She was comfortable taking patient home. Discussed possibility of TIA and need to continue on aspirin and statin. Family refused statin but advised for diet modification and encouraged to take omegas given elevated triglycerides. Patients presenting symptoms improved significantly. On day of discharge, vitals and physical exam were stable. She was discharged home in stable condition. Home Meds Reported Medications Donepezil* (Donepezil*) 23 Mg Tablet, 23 MG PO DAILY, #30 TAB 01/30/18 Olmesartan/Hydrochlorothiazide (Olmesartan-Hctz 40-12.5 mg Tab) 1 Each Tablet, 1 EACH PO DAILY, TAB 01/30/18 Amlodipine Besylate* (Norvasc*) 5 Mg Tablet, 5 MG PO DAILY, TAB 01/30/18 Cholecalciferol (Vitamin D3) 5,000 Unit Tablet, 5000 UNIT PO DAILY, TAB 01/30/18 Metformin Hcl* (Metformin Hcl*) 1,000 Mg Tablet, 1000 MG PO WITH BREAKFAST DINNE, #60 TAB 10/3/18 Levothyroxine Sodium* (Levothyroxine Sodium*) 50 Mcg Tablet, 50 MCG PO BEFORE BREAKFAST, #30 TAB 01/30/18 Duloxetine Hcl* (Duloxetine Hcl*) 60 Mg Capsule.dr, 60 MG PO QHS, #30 CAP 01/30/18 Memantine* (Namenda*) 10 Mg Tablet, 10 MG PO BID, #60 TAB 01/30/18 Quetiapine Fumarate* (Quetiapine Fumarate*) 25 Mg Tablet, 25 MG PO HS, TAB 01/30/18 Aspirin* (Aspirin* EC) 81 Mg Tablet.dr, 81 MG PO DAILY, TAB 01/30/18 Clonazepam* (Clonazepam*) 1 Mg Tablet, 1 MG PO QHS PRN for ANXIETY, TAB 01/30/18 Discontinued Reported Medications Cyanocobalamin (Vitamin B-12) (Vitamin B-12) 1,000 Mcg Capsule, 1000 MCG PO DAILY, CAP 01/30/18 Discontinued Scripts Metronidazole* (Flagyl*) 500 Mg Tablet, 500 MG PO TID for 7 Days, #21 TAB Prov:JD DESAI 01/25/18 Ciprofloxacin Hcl* (Ciprofloxacin Hcl*) 500 Mg Tablet, 500 MG PO BID@,18 for 7 Days, #14 TAB Prov:JD DESAI 01/25/18 Follow-up Plan 1. Follow up with your primary care physician in 1 week 2. Continue on aspirin and all other home medications 3. It is important to limit intake of greasy, fatty foods since your triglyceride levels are very elevated. It is recommended you take omega/fish oil, up to 3000mg a day 4. If symptoms return or worsen, please go to your nearest emergency department Primary Care Provider Not On Staff Doctor Time spent on discharge: > 30 minutes Pending Labs Laboratory Tests Test 05/19/18 20:06 05/20/18 05:05 05/20/18 07:57 05/20/18 11:43 Bedside 100 87 79 Glucose mg/dL (70-220) mg/dL (70-220) mg/dL (70-220) White Blood 9.5 Count 10^3/ul (4.8-1 0.8) Red Blood 3.74 Count 10^6/ul (4.20- 5.40) Hemoglobin 11.2 g/dl (12.0-16. 0) Hematocrit 35.4 % (37.0-47.0) Mean 94.7 Corpuscular fl (82.0-101.0 Volume ) Mean 29.9 Corpuscular pg (29.0-33.0) Hemoglobin Mean 31.6 Corpuscular g/dl (32.0-37. Hemoglobin Conc 0) ent Red Cell 13.5 Distribution % (11.5-14.5) Width Platelet Count 155 10^3/UL (140-4 15) Mean Platelet 14.0 Volume fl (7.4-10.4) Immature 0.300 Granulocytes % % (0.001-0.429 ) Neutrophils % 61.2 % (39.0-77.0) Lymphocytes % 25.3 % (15.0-51.0) Monocytes % 9.2 % (0.0-11.0) Eosinophils % 3.3 % (0.0-7.0) Basophils % 0.7 % (0.0-2.0) Nucleated Red 0.0 Blood Cells % /100WBC (0.0-0 .0) Immature 0.030 Granulocytes # 10^3/ul (0.0-0 .031) Neutrophils # 5.8 10^3/ul (1.6-7 .5) Lymphocytes # 2.4 10^3/ul (0.8-2 .9) Monocytes # 0.9 10^3/ul (0.3-0 .9) Eosinophils # 0.3 10^3/ul (0.0-0 .5) Basophils # 0.1 10^3/ul (0.0-0 .1) Nucleated Red 0.0 Blood Cells # 10^3/ul (0.0-0 .0) Prothrombin 13.4 Time Sec (11.9-14.9 ) Prothrombin 1.0 Time Ratio INR 1.01 International Normalized Rati o Sodium Level 135 mmol/L (135-14 4) Potassium 4.6 Level mmol/L (3.5-5. 1) Chloride Level 102 mmol/L (97-110 ) Carbon Dioxide 26 Level mmol/L (21-31) Anion Gap 7 (5-13) Blood Urea 17 Nitrogen mg/dl (7-20) Creatinine 0.87 mg/dl (0.44-1. 00) Est Glomerular mL/min (>60) Filtrat Rate mL/min Glucose Level 87 mg/dl (70-220) Hemoglobin A1c 5.7 % (0-5.9) Calcium Level 9.2 mg/dl (8.4-10. 2) Phosphorus 4.1 Level mg/dl (2.5-4.9 ) Magnesium 1.3 Level mg/dl (1.7-2.5 ) Triglycerides 287 Level mg/dl (0-149) Cholesterol 184 Level mg/dl (100-200 ) LDL 74 mg/dl Cholesterol, Calculated HDL 53 Cholesterol mg/dl (33-92) Cholesterol/HDL 3.4 RATIO Ratio Vitamin B12 > 1000 Level pg/ml (239-931 ) Microbiology Date/Time Source Procedure Growth Status 05/20/18 00:50 Nasopharyngeal Influenza Types A,B Direct EIA - Final Complete HERVE WEST MD May 20, 2018 17:58
== END 2018-05-20 12:38 | disposition home or self-care (01) | DRG 72 ==
LOC: E/R 12:56 → 6WM 15:23
PROVIDERS: ADMIT Internal Medicine; ATTEND Internal Medicine
DX: G93.40 Encephalopathy, unspecified (principal); G30.9 Alzheimer's disease, unspecified; F02.80 Dementia in other diseases classified elsewhere, unspecified severity, without behavioral disturbance, psychotic disturbance, mood disturbance, and anxiety; I10 Essential (primary) hypertension; E03.9 Hypothyroidism, unspecified; E11.9 Type 2 diabetes mellitus without complications; Z86.73 Personal history of transient ischemic attack (TIA), and cerebral infarction without residual deficits; Z79.82 Long term (current) use of aspirin; Z79.84 Long term (current) use of oral hypoglycemic drugs
CPT/HCPCS: 36415; 70450; 71045; 80048; 80053; 80061; 80307; 81001; 81003; 82607; 82962; 83036; 83605; 83735; 84100; 84484; 85025; 85610; 85730; 87040; 87086; 87400; 93005; 97161; G0378; J0696; J1650; J1815; J3411; J7030; J7040

== ENCOUNTER 2018-10-08 16:09 | Emergency (ER) | payer MEDICARE, OTHER ==
[~2018-10-08] VITALS: Ht 157.5 cm; Wt 57.4 kg
[~2018-10-08 16:09] MED LIST changes: -CIPR500T4 PO; -CYAN-23 PO; -METR500T PO
[2018-10-08 17:22] VITALS: Ht 157.5 cm; Wt 57.4 kg
--- NOTE | 2018-10-08 19:21 | ERD ---
ER Documentation Chief Complaint Chief Complaint AP HPI The patient is a 78-year-old female, presenting to the ER because of facial itch this morning, intermittent abdominal pain about 3 PM, vomited 3 times, mostly mucus, denies hematochezia/hematemesis, complains of diarrhea for last 5 days, seen by her physician a few days ago, denies fever, chills, neck pain, chest pain, dysuria. She does not smoke nor drink Past medical history: Hypertension, diabetes mellitus, hypothyroidism, dementia, anxiety Past surgical history: None ROS All systems reviewed and are negative except as per history of present illness. Medications Home Meds Active Scripts Hydrocortisone* Topical (Hydrocortisone* Topical) 2.5%-28.3 Gm Cream..g., 1 APPLIC TOP BID, #1 TUB Prov:ANUP MALDONADO MD 10/08/18 Metronidazole* (Flagyl*) 500 Mg Tablet, 500 MG PO TID for 7 Days, TAB Prov:ANUP MALDONADO MD 10/08/18 Ciprofloxacin Hcl* (Ciprofloxacin Hcl*) 500 Mg Tablet, 500 MG PO BID for 7 Days, TAB Prov:ANUP MALDONADO MD 10/08/18 Reported Medications Duloxetine Hcl* (Duloxetine Hcl*) 20 Mg Capsule.dr, 20 MG PO DAILY, #30 CAP 10/08/18 Donepezil* (Donepezil*) 23 Mg Tablet, 23 MG PO DAILY, #30 TAB 01/30/18 Olmesartan/Hydrochlorothiazide (Olmesartan-Hctz 40-12.5 mg Tab) 1 Each Tablet, 1 EACH PO DAILY, TAB 01/30/18 Amlodipine Besylate* (Norvasc*) 5 Mg Tablet, 5 MG PO DAILY, TAB 01/30/18 Cholecalciferol (Vitamin D3) 5,000 Unit Tablet, 5000 UNIT PO DAILY, TAB 01/30/18 Metformin Hcl* (Metformin Hcl*) 1,000 Mg Tablet, 1000 MG PO WITH BREAKFAST DINNE, #60 TAB 01/30/18 Levothyroxine Sodium* (Levothyroxine Sodium*) 50 Mcg Tablet, 50 MCG PO BEFORE BREAKFAST, #30 TAB 01/30/18 Memantine* (Namenda*) 10 Mg Tablet, 10 MG PO BID, #60 TAB 01/30/18 Quetiapine Fumarate* (Quetiapine Fumarate*) 25 Mg Tablet, 25 MG PO HS, TAB 01/30/18 Aspirin* (Aspirin* EC) 81 Mg Tablet.dr, 81 MG PO DAILY, TAB 01/30/18 Discontinued Reported Medications Duloxetine Hcl* (Duloxetine Hcl*) 60 Mg Capsule.dr, 60 MG PO QHS, #30 CAP 01/30/18 Clonazepam* (Clonazepam*) 1 Mg Tablet, 1 MG PO QHS PRN for ANXIETY, TAB 01/30/18 Allergies Allergies: Coded Allergies: No Known Drug Allergy (Unverified Allergy, Mild, 10/08/18) PMhx/Soc History of Surgery: No Anesthesia Reaction: No Hx Neurological Disorder: Yes (alz, dimentia) Hx Respiratory Disorders: No Hx Cardiac Disorders: Yes (htn) Hx Psychiatric Problems: Yes (alz, depression) Hx Miscellaneous Medical Probl: Yes (pls see EMR) Hx Alcohol Use: Yes (occasional) Hx Substance Use: No Hx Tobacco Use: No Physical Exam Vitals Vital Signs Date Temp Pulse Resp B/P (MAP) Pulse Ox O2 O2 Flow FiO2 Time Delivery Rate 10/08/18 97.9 60 14 126/56 99 Room Air 22:41 (79) 10/08/18 58 14 116/58 99 Room Air 21:00 (77) 10/08/18 62 14 107/56 98 Room Air 19:20 (73) 10/08/18 98.4 75 18 106/53 99 17:22 (70) Physical Exam Const: No acute distress. Head: Atraumatic. Eyes: Normal Conjunctiva. ENT: Normal External Ears, Nose and Mouth. No erythema on the face, no vesicles/pustules Neck: Full range of motion. No meningismus. Resp: Clear to auscultation bilaterally. Cardio: Regular rate and rhythm. Abd: Soft, non distended, normal bowel sounds, vague and diffuse abdominal tenderness, no rigidity/rebound/CVA tenderness Skin: No petechiae or rashes. Back: No midline or flank tenderness. Ext: No cyanosis, or edema. Neur: Awake and alert. No focal deficit Psych: Normal Mood and Affect. Result Diagram: 10/08/18194210/08/181942 Results 24 hrs Laboratory Tests Test 10/08/18 19:43 10/08/18 19:55 White Blood Count 8.5 10^3/ul Red Blood Count 4.21 10^6/ul Hemoglobin 12.4 g/dl Hematocrit 39.5 % Mean Corpuscular Volume 93.8 fl Mean Corpuscular Hemoglobin 29.5 pg Mean Corpuscular Hemoglobin Concent 31.4 g/dl Red Cell Distribution Width 12.8 % Platelet Count 201 10^3/UL Mean Platelet Volume 13.5 fl Immature Granulocytes % 0.200 % Neutrophils % 53.7 % Lymphocytes % 34.1 % Monocytes % 9.2 % Eosinophils % 2.1 % Basophils % 0.7 % Nucleated Red Blood Cells % 0.0 /100WBC Immature Granulocytes # 0.020 10^3/ul Neutrophils # 4.5 10^3/ul Lymphocytes # 2.9 10^3/ul Monocytes # 0.8 10^3/ul Eosinophils # 0.2 10^3/ul Basophils # 0.1 10^3/ul Nucleated Red Blood Cells # 0.0 10^3/ul Sodium Level 140 mmol/L Potassium Level 4.2 mmol/L Chloride Level 100 mmol/L Carbon Dioxide Level 26 mmol/L Anion Gap 14 Blood Urea Nitrogen 20 mg/dl Creatinine 1.54 mg/dl Est Glomerular Filtrat Rate mL/min mL/min Glucose Level 106 mg/dl Calcium Level 10.0 mg/dl Total Bilirubin 0.5 mg/dl Direct Bilirubin 0.00 mg/dl Indirect Bilirubin 0.5 mg/dl Aspartate Amino Transf (AST/SGOT) 20 IU/L Alanine Aminotransferase (ALT/SGPT) 13 IU/L Alkaline Phosphatase 69 IU/L Total Protein 8.1 g/dl Albumin 4.6 g/dl Globulin 3.50 g/dl Albumin/Globulin Ratio 1.31 Lipase 46 U/L Bedside Urine pH (LAB) 5.5 Bedside Urine Protein (LAB) 3+ Bedside Urine Glucose (UA) Negative Bedside Urine Ketones (LAB) Trace Bedside Urine Blood Negative Bedside Urine Nitrite (LAB) Negative Bedside Urine Leukocyte Esterase (L 1+ Current Medications Medications Dose Sig/Shena Start Time Status Last (Trade) Ordered Route PRN Stop Time Admin Dose Reason Admin Sodium 500 ml @ Q1H ONCE 10/08/18 DC 10/08/18 Chloride 500 mls/hr IV 19:30 19:38 10/08/18 20:29 Ondansetron 4 mg ONCE STAT 10/08/18 DC 10/08/18 HCl (Zofran IV 19:29 19:38 Inj) 10/08/18 19:32 Ceftriaxone 50 ml @ ONCE ONCE 10/08/18 DC 10/08/18 Sodium 100 mls/hr IVPB 21:00 21:49 10/08/18 21:29 Procedures/MDM [place] [address] Radiology Main Line: [phone] DIAGNOSTIC IMAGING REPORT Patient: REENA SANDRA : 1940 Age: 78 Sex: F MR #: [id number] DOS: 10/08/181928 Ordering MD: ANUP MALDONADO MD Location: E/R Room/Bed: PROCEDURE: CT Abdomen and Pelvis Without Intravenous Contrast CLINICAL INDICATION: Abdominal pain. TECHNIQUE: Axial computed tomography images of the abdomen and pelvis without intravenous contrast. Sagittal and coronal reformatted images were created and reviewed. CTDIvol (mGy) = 8.35; total DLP (mGy-cm) = 471.41. This CT exam was performed using one or more of the following dose reduction techniques: automated exposure control, adjustment of the mA and/or kV according to patient size, and/or use of iterative reconstruction technique. DICOM images are available. COMPARISON: None FINDINGS: LUNG BASES: Unremarkable. No mass. No consolidation. HEART: Trace pericardial effusion. No cardiomegaly. ABDOMEN: LIVER: Unremarkable. GALLBLADDER AND BILE DUCTS: Unremarkable. No calcified stones. No ductal dilation. PANCREAS: Unremarkable. No ductal dilation. SPLEEN: Unremarkable. No splenomegaly. ADRENALS: Unremarkable. No mass. KIDNEYS AND URETERS: Bilateral parapelvic renal cysts measuring up to 2.1 cm. No cortical cyst. No calculus. No hydronephrosis. STOMACH AND BOWEL: There is diffuse mural thickening of the distal transverse, descending, and rectosigmoid colon. Mild pericolonic inflammation seen in the mid descending colon. Findings are consistent with mild nonspecific colitis. Diverticulosis noted of the descending and rectosigmoid colon. No focal diverticulitis noted. The stomach is unremarkable in appearance. No acute abnormality of the small bowel. No obstruction. PELVIS: APPENDIX: The appendix is normal in appearance. No evidence of appendicitis. BLADDER: Unremarkable. No stones. REPRODUCTIVE: Unremarkable as visualized. ABDOMEN and PELVIS: INTRAPERITONEAL SPACE: Unremarkable. No free air. No significant fluid collection. BONES/JOINTS: Scoliosis and degeneration of the lumbar spine. No acute osseous abnormality. No dislocation. SOFT TISSUES: Unremarkable. VASCULATURE: The abdominal aorta is atherosclerotic. No aneurysm. LYMPH NODES: Unremarkable. No enlarged lymph nodes. IMPRESSION: 1. There is diffuse mural thickening of the distal transverse, descending, and rectosigmoid colon. Mild pericolonic inflammation seen in the mid descending colon. Findings are consistent with mild nonspecific colitis. 2. Bilateral parapelvic renal cysts measuring up to 2.1 cm. No cortical cyst. No calculus. No hydronephrosis. 3. Diverticulosis noted of the descending and rectosigmoid colon. No focal diverticulitis noted. RPTAT: [facility] Rani Harris Physician [employer] Date Time Electronically viewed and signed by Rani Harris Physician [employer] on 10/08/2018 21:46 RmC/ CC: ANUP MALDONADO MD [id number] [place] [address] Radiology Main Line: [phone] DIAGNOSTIC IMAGING REPORT Patient: REENA SANDRA : 1940 Age: 78 Sex: F MR #: [id number] DOS: 10/08/181928 Ordering MD: ANUP MALDONADO MD Location: E/R Room/Bed: PROCEDURE: US Abdomen. CLINICAL INDICATION: Abdominal Pain TECHNIQUE: Multiple real-time images were acquired of the patient's abdomen and retroperitoneum utilizing a high resolution transducer. COMPARISON: CT abdomen pelvis January 30, 2018 FINDINGS: The liver is of normal size, contour and echogenicity with no mass or intrahepatic ductal dilatation. Portal and hepatic vein are patent on color flow Doppler imaging. The common bile duct measures 1.9 millimeter in transverse diameter.No gallstones are identified. Gallbladder wall is not thickened and no abnormal pericholecystic fluid collection is seen. No sonographic Bloom's sign was elicited during this exam. There is no ascites. The pancreas is normal with no mass or ductal dilatation. The right kidney measures 8.3 centimeters in length. There is mild fullness of the right intrarenal collecting system. There is no evidence of abdominal aortic aneurysm or caval thrombosis. IMPRESSION: No evidence of cholelithiasis, cholecystitis or biliary obstruction. Mild fullness right intrarenal collecting system. .Shivam Pradhan MD, MD Date Time Electronically viewed and signed by .Shivam Pradhan MD, MD on 10/08/2018 20:28 .A/ CC: ANUP MALDONADO MD [id number] MEDICAL MAKING DECISION: The patient is a 78-year-old female, presenting with acute cystitis, acute colitis, was treated with normal saline 500 mL IV for clin ical dehydration, Zofran IV for nausea, Rocephin 1 g IV for acute cystitis good response, is stable for outpatient follow-up The differential diagnoses considered include but are not limited to laith lithiasis, cholecystitis, choledocholithiasis, cholangitis, pancreatitis, hepatitis, gastritis, peptic ulcer disease, gastric ulcer, appendicitis, cystitis, diverticulitis, partial small bowel obstruction. Departure Diagnosis: Primary Impression: UTI (urinary tract infection) Additional Impressions: Colitis Dermatitis Condition: Good Comments She was discharged with Cipro, Flagyl, hydrocortisone 1% cream I discussed the findings with the patient. I advised the patient to follow-up with the primary physician in about 2-3 days, sooner if needed and return if any concern. Disclaimer: Inadvertent spelling and grammatical errors are likely due to EHR/dictation software use and do not reflect on the overall quality of patient care. Also, please note that the electronic time recorded on this note does not necessarily reflect the actual time of the patient encounter. ANUP MALDONADO MD Oct 08, 2018 19:21
[2018-10-08] MEDS ORDERED: ONDANSETRON 4 MG INJ IV STA (19:29)
[2018-10-08] MEDS ORDERED: SOD CHLORIDE 0.9% 500 ML IV ONE (19:30)
[2018-10-08] MEDS ORDERED: CEFTRIAXONE 1 GM/50 ML (PMX) 50 ML IVPB ONE (21:00)
[2018-10-08] MEDS ORDERED: CIPR500T4 PO (22:24)
[2018-10-08] MEDS ORDERED: HC30CR25 TOP (22:25)
[2018-10-08] MEDS ORDERED: METR500T PO (22:25)
[2018-10-08 22:41] VITALS: BP 126/56; PULSE 60; RESP 14
[2018-10-08] MEDS ORDERED: DULO20CA17 PO (23:03)
[2018-10-08] MEDS ORDERED: RISP0.5T3 PO (23:21)
[2018-10-08] MEDS ORDERED: ZOLP5TAB7 PO (23:21)
[2018-10-08] MEDS ORDERED: CYAN500T46 PO (23:43)
== END 2018-10-08 22:41 | disposition home or self-care (01) ==
LOC: E/R 16:09
DX: N39.0 Urinary tract infection, site not specified (principal); K52.9 Noninfective gastroenteritis and colitis, unspecified; L30.9 Dermatitis, unspecified
CPT/HCPCS: 36415; 74176; 76705; 80053; 81003; 83690; 85025; 96374; 96375; 99285; J0696; J2405; J7040

== ENCOUNTER 2018-10-11 12:22 | Observation (INO) | payer MEDICARE, OTHER ==
[~2018-10-11] VITALS: Ht 307.3 cm; Wt 61.0 kg
[~2018-10-11 12:22] MED LIST changes: +CIPR500T4 PO; -CLON1TAB13 PO; +CYAN500T46 PO; +DULO20CA17 PO; -DULO60CA59 PO; +HC30CR25 TOP; +METR500T PO; +RISP0.5T3 PO; +ZOLP5TAB7 PO
[2018-10-11] MEDS ORDERED: ONDANSETRON 4 MG INJ IV STA (13:10)
[2018-10-11] MEDS ORDERED: SOD CHLORIDE 0.9% 1,000 ML IV STA (13:10)
[2018-10-11] MEDS ORDERED: morphine 4 MG/ML VIAL IV STA (13:10)
[2018-10-11] MEDS ORDERED: CYCL5TAB PO (13:56)
[2018-10-11] MEDS ORDERED: IRBE1TAB35 PO (13:57)
[2018-10-11] MEDS ORDERED: DIC20 PO (13:58)
[2018-10-11] MEDS ORDERED: DONE23TA12 PO (13:58)
[2018-10-11] MEDS ORDERED: CYAN-23 PO (13:59)
[2018-10-11] MEDS ORDERED: CHOL500010 PO (14:00)
[2018-10-11] MEDS ORDERED: AMLO5TAB4 PO (14:00)
[2018-10-11] MEDS ORDERED: ASPI-817 PO (14:00)
[2018-10-11] MEDS ORDERED: ZOLP5TAB7 PO (14:01)
[2018-10-11] MEDS ORDERED: DULO20CA17 PO (14:01)
[2018-10-11] MEDS ORDERED: METF100010 PO (14:01)
[2018-10-11] MEDS ORDERED: LEVO50TA7 PO (14:02)
[2018-10-11] MEDS ORDERED: LORA0.5T PO (14:02)
[2018-10-11] MEDS ORDERED: RISP0.5T3 PO (14:02)
[2018-10-11] MEDS ORDERED: QUET25TA33 PO (14:03)
[2018-10-11] MEDS ORDERED: QUET50TA22 PO (14:03)
[2018-10-11] MEDS ORDERED: SOD CHLORIDE 0.9% 1,000 ML IV SCH (17:17)
--- NOTE | 2018-10-11 17:21 | ERD ---
ER Documentation Chief Complaint Chief Complaint vomiting and weakness not better from Sunday This is a 78-year-old female who was seen here 2 days ago and got diagnosed with colitis on CAT scan. She is having nausea vomiting and diarrhea this nonbloody nonbilious and she was sent home on antibiotics. She says she is been on them for 2 days and she is getting worse. She says she has more vomiting and more diarrhea and feels generally weak. She said today she is unable to walk because she is so weak. Denies any fever or chest pain. Her abdominal pain is located diffusely and is intermittent crampy pain without radiation ROS All systems reviewed and are negative except as per history of present illness. Medications Home Meds Active Scripts Metronidazole* (Flagyl*) 500 Mg Tablet, 500 MG PO TID for 7 Days, TAB Prov:ANUP MALDONADO MD 10/08/18 Ciprofloxacin Hcl* (Ciprofloxacin Hcl*) 500 Mg Tablet, 500 MG PO BID for 7 Days, TAB Prov:ANUP MALDONADO MD 10/08/18 Reported Medications Quetiapine Fumarate* (Quetiapine Fumarate*) 50 Mg Tablet, 50 MG PO NEEDED, TAB 10/11/18 Quetiapine Fumarate* (Quetiapine Fumarate*) 25 Mg Tablet, 25 MG PO HS, TAB 10/11/18 Levothyroxine Sodium* (Levothyroxine Sodium*) 50 Mcg Tablet, 50 MCG PO BEFORE BREAKFAST, #30 TAB 10/11/18 Risperidone* (Risperidone*) 0.5 Mg Tablet, 0.5 MG PO QHS, TAB 10/11/18 Lorazepam* (Lorazepam*) 0.5 Mg Tablet, 0.5 MG PO HS PRN for ANXIETY, TAB 10/11/18 Duloxetine Hcl* (Duloxetine Hcl*) 20 Mg Capsule.dr, 40 MG PO DAILY, #30 CAP 10/11/18 Zolpidem Tartrate* (Zolpidem Tartrate*) 5 Mg Tablet, 5 MG PO QHS PRN for INSOMNIA, #30 TAB 10/11/18 Metformin Hcl* (Metformin Hcl*) 1,000 Mg Tablet, 1000 MG PO WITH BREAKFAST DINNE, #60 TAB 10/11/18 Cholecalciferol (Vitamin D3) 5,000 Unit Tablet, 5000 UNIT PO DAILY, TAB 10/11/18 Aspirin* (Aspirin* EC) 81 Mg Tablet.dr, 81 MG PO DAILY, TAB 10/11/18 Amlodipine Besylate* (Norvasc*) 5 Mg Tablet, 5 MG PO DAILY, TAB 10/11/18 Cyanocobalamin (Vitamin B-12) (Vitamin B-12) 1,000 Mcg Capsule, 1000 MCG PO DAILY, CAP 10/11/18 Dicyclomine HCl (Dicyclomine HCl) 20 Mg Tablet, 20 MG PO Q6H PRN for NEEDED 10/11/18 Donepezil* (Donepezil*) 23 Mg Tablet, 23 MG PO DAILY, #30 TAB 10/11/18 Irbesartan-Hydrochlorothiazide (Irbesartan-Hydrochlorothiazide) 300-12.5 Mg Tab, 1 EACH PO DAILY, TAB 10/11/18 Cyclobenzaprine Hcl* (Cyclobenzaprine Hcl*) 5 Mg Tablet, 5 MG PO QHS, #60 TAB 10/11/18 Discontinued Reported Medications Cyanocobalamin* (Vitamin B12*) 500 Mcg Tab, 500 MCG PO DAILY, TAB 10/08/18 Zolpidem Tartrate* (Zolpidem Tartrate*) 5 Mg Tablet, 5 MG PO QHS PRN for INSOMNIA, #30 TAB 10/08/18 Risperidone* (Risperidone*) 0.5 Mg Tablet, 0.5 MG PO DAILY, TAB 10/08/18 Duloxetine Hcl* (Duloxetine Hcl*) 20 Mg Capsule.dr, 20 MG PO DAILY, #30 CAP 10/08/18 Donepezil* (Donepezil*) 23 Mg Tablet, 23 MG PO DAILY, #30 TAB 01/30/18 Olmesartan/Hydrochlorothiazide (Olmesartan-Hctz 40-12.5 mg Tab) 1 Each Tablet, 1 EACH PO DAILY, TAB 01/30/18 Amlodipine Besylate* (Norvasc*) 5 Mg Tablet, 5 MG PO DAILY, TAB 01/30/18 Cholecalciferol (Vitamin D3) 5,000 Unit Tablet, 5000 UNIT PO DAILY, TAB 01/30/18 Metformin Hcl* (Metformin Hcl*) 1,000 Mg Tablet, 1000 MG PO WITH BREAKFAST DINNE, #60 TAB 01/30/18 Levothyroxine Sodium* (Levothyroxine Sodium*) 50 Mcg Tablet, 50 MCG PO BEFORE BREAKFAST, #30 TAB 01/30/18 Memantine* (Namenda*) 10 Mg Tablet, 10 MG PO BID, #60 TAB 01/30/18 Quetiapine Fumarate* (Quetiapine Fumarate*) 25 Mg Tablet, 25 MG PO HS, TAB 01/30/18 Aspirin* (Aspirin* EC) 81 Mg Tablet.dr, 81 MG PO DAILY, TAB 01/30/18 Duloxetine Hcl* (Duloxetine Hcl*) 60 Mg Capsule.dr, 60 MG PO QHS, #30 CAP 01/30/18 Clonazepam* (Clonazepam*) 1 Mg Tablet, 1 MG PO QHS PRN for ANXIETY, TAB 01/30/18 Discontinued Scripts Hydrocortisone* Topical (Hydrocortisone* Topical) 2.5%-28.3 Gm Cream..g., 1 A PPLIC TOP BID, #1 TUB Prov:ANUP MALDONADO MD 10/08/18 Allergies Allergies: Coded Allergies: No Known Drug Allergy (Unverified Allergy, Mild, 10/11/18) PMhx/Soc Medical and Surgical Hx: pt denies Surgical Hx History of Surgery: No Anesthesia Reaction: No Hx Neurological Disorder: Yes (Alzheimer's dementia) Hx Respiratory Disorders: No Hx Cardiac Disorders: Yes (HTN) Hx Psychiatric Problems: Yes (alz, depression) Hx Miscellaneous Medical Probl: Yes (pls see EMR) Hx Alcohol Use: Yes (occasional) Hx Substance Use: No Hx Tobacco Use: No Smoking Status: Never smoker FmHx Family History: No coronary disease Physical Exam Vitals Vital Signs Date Temp Pulse Resp B/P (MAP) Pulse Ox O2 O2 Flow FiO2 Time Delivery Rate 10/11/18 60 14 113/58 95 Room Air 16:00 (76) 10/11/18 66 14 105/57 95 Room Air 15:00 (73) 10/11/18 98.3 65 18 114/59 95 Room Air 13:02 (77) 10/11/18 97.7 72 16 106/56 98 12:29 (73) Physical Exam Const: Well-developed, well-nourished Head: Atraumatic, normocephalic Eyes: Normal Conjunctiva, PERRLA, EOMI, normal sclera, no nystagmus ENT: Normal External Ears, Nose and Mouth, moist mucus membranes. Neck: Full range of motion. No meningismus, no lymphadenopathy. Resp: Clear to auscultation bilaterally, no wheezing, rhonchi, rales Cardio: Regular rate and rhythm, no murmurs, S1 S2 present Abd: Soft, diffuse mild abdominal tenderness, non distended. Normal bowel sounds, no guarding or rebound, no pulsitile abdominal masses or bruits Skin: Rash to face that is raised and scaly above her eyes and on her chin Back: No midline or flank tenderness Ext: No cyanosis, or edema, FROM x 4, normal inspection, neurovascularly intact x 4 Neur: Awake and alert, STR 5/5 x 4, sensation intact x 4, no focal findings, cerebellum intact Psych: Normal Mood and Affect Result Diagram: 10/11/18 1308 10/11/18 1308 Results 24 hrs Laboratory Tests Test 10/11/18 13:08 White Blood Count 8.2 10^3/ul Red Blood Count 3.94 10^6/ul Hemoglobin 11.6 g/dl Hematocrit 36.6 % Mean Corpuscular Volume 92.9 fl Mean Corpuscular Hemoglobin 29.4 pg Mean Corpuscular Hemoglobin Concent 31.7 g/dl Red Cell Distribution Width 12.7 % Platelet Count 195 10^3/UL Mean Platelet Volume 13.7 fl Immature Granulocytes % 0.200 % Neutrophils % 74.2 % Lymphocytes % 18.5 % Monocytes % 5.9 % Eosinophils % 0.6 % Basophils % 0.6 % Nucleated Red Blood Cells % 0.0 /100WBC Immature Granulocytes # 0.020 10^3/ul Neutrophils # 6.1 10^3/ul Lymphocytes # 1.5 10^3/ul Monocytes # 0.5 10^3/ul Eosinophils # 0.1 10^3/ul Basophils # 0.1 10^3/ul Nucleated Red Blood Cells # 0.0 10^3/ul Sodium Level 138 mmol/L Potassium Level 4.1 mmol/L Chloride Level 102 mmol/L Carbon Dioxide Level 23 mmol/L Anion Gap 13 Blood Urea Nitrogen 25 mg/dl Creatinine 1.41 mg/dl Est Glomerular Filtrat Rate mL/min mL/min Glucose Level 104 mg/dl Calcium Level 9.4 mg/dl Total Bilirubin 0.3 mg/dl Direct Bilirubin 0.00 mg/dl Indirect Bilirubin 0.3 mg/dl Aspartate Amino Transf (AST/SGOT) 17 IU/L Alanine Aminotransferase (ALT/SGPT) 16 IU/L Alkaline Phosphatase 60 IU/L Total Protein 7.4 g/dl Albumin 4.1 g/dl Globulin 3.30 g/dl Albumin/Globulin Ratio 1.24 Lipase 46 U/L Current Medications Medications Dose Sig/Shena Start Time Status Last (Trade) Ordered Route PRN Stop Time Admin Dose Reason Admin Sodium 1,000 ml @ Q1H STAT 10/11/18 DC 10/11/18 Chloride 1,000 mls/hr IV 13:10 13:20 10/11/18 14:09 Morphine 4 mg ONCE STAT 10/11/18 DC 10/11/18 Sulfate IV 13:10 13:17 (morphine) 10/11/18 13:14 Ondansetron 4 mg ONCE STAT 10/11/18 DC 10/11/18 HCl (Zofran IV 13:10 13:17 Inj) 10/11/18 13:14 50 mcg BEFORE 10/12/18 UNV Levothyroxine BREAKFAST 07:00 Sodium PO (Synthroid) Risperidone 0.5 mg QHS PO 10/11/18 UNV (Risperdal) 21:00 Sodium 1,000 ml @ [id number] IV 10/11/18 Chloride 80 mls/hr 17:17 10/12/18 05:46 Ondansetron 4 mg BRIDGE ORDER 10/11/18 HCl (Zofran PRN IV 17:30 Inj) NAUSEA/VOMITI 10/12/18 17:29 NG 650 mg ER BRIDGE 10/11/18 Acetaminophen PRN PO 17:30 (Tylenol .MILD PAIN 10/12/18 17:29 Tab) 1-3 OR TEMP Procedures/[place] [address] Radiology Main Line: [phone] DIAGNOSTIC IMAGING REPORT Patient: REENA SANDRA : 1940 Age: 78 Sex: F MR #: [id number] DOS: 10/11/18 1310 Ordering MD: RACHAEL OVIEDO DO Location: E/R Room/Bed: PROCEDURE: CT Abdomen and Pelvis without contrast. CLINICAL INDICATION: Abdominal pain. TECHNIQUE: CT scan of the abdomen and pelvis without contrast was performed on a multidetector high-resolution CT scanner. The patient was scanned without intravenous contrast. Coronal and sagittal reformatted images were obtained from the axial source images. Images were reviewed on a high-resolution PACS workstation. One or more of the following dose reduction techniques were used: Automated exposure control, adjustment of the mA and/or kV according to patient size, use of iterative reconstruction technique. DICOM images are available. The total exam CTDI equals 9.14 mGy and the total exam DLP equals 497.92 mGy-cm. COMPARISON: CT from 10/08/2018. FINDINGS: LUNG BASES: Unremarkable. No mass. No consolidation. HEART: Trace pericardial effusion. No cardiomegaly. LIVER: Unremarkable. GALLBLADDER AND BILE DUCTS: Unremarkable. No calcified stones. No ductal dilation. PANCREAS: Unremarkable. No ductal dilation. SPLEEN: Unremarkable. No splenomegaly. ADRENALS: Unremarkable. No mass. KIDNEYS AND URETERS: Bilateral parapelvic renal cysts measuring up to 2.1 cm. No cortical cyst. No calculus. No hydronephrosis. STOMACH AND BOWEL: There is interval decreased diffuse mural thickening of the distal transverse, descending, and rectosigmoid colon. Diverticulosis noted of the descending and rectosigmoid colon. No focal diverticulitis noted. The stomach is unremarkable in appearance. No acute abnormality of the small bowel. No obstruction. The appendix is normal in appearance. No evidence of appendicitis. BLADDER: Unremarkable. No stones. REPRODUCTIVE: The endometrium appears thickened, measuring 1.7 cm. INTRAPERITONEAL SPACE: Unremarkable. No free air. No significant fluid collection. BONES/JOINTS: Scoliosis and degeneration of the lumbar spine. No acute osseous abnormality. No dislocation. SOFT TISSUES: Unremarkable. VASCULATURE: The abdominal aorta is atherosclerotic. No aneurysm. LYMPH NODES: Unremarkable. No enlarged lymph nodes. IMPRESSION: 1. Interval decreases diffuse mural thickening of the distal transverse, descending, and rectosigmoid colon, consistent with resolving mild nonspecific colitis. 2. Bilateral parapelvic renal cysts measuring up to 2.1 cm. No cortical cyst. No calculus. No hydronephrosis. 3. Diverticulosis noted of the descending and rectosigmoid colon. No focal diverticulitis noted. 4. Thickened endometrium (1.7 cm), unusual in the postmenopausal patient. Consider further evaluation with pelvic ultrasound. RPTAT: JJ .Bill Scanlon MD, MD Date Time Electronically viewed and signed by .Bill Scanlon MD, on 10/11/2018 15:07 .A/ CC: RACHAEL OVIEDO DO [id number] Patient's labs look better and CT scan is improved however she clinically is doing worse with more vomiting and diarrhea and has generalized weakness We will admit to panel Departure Diagnosis: Primary Impression: Colitis Additional Impression: Generalized weakness Condition: Stable RACHAEL OVIEDO DO Oct 11, 2018 17:21
[2018-10-11] MEDS ORDERED: ONDANSETRON 4 MG INJ IV PRN ×2 (17:30→19:00)
[2018-10-11] MEDS ORDERED: ACETAMINOPHEN 325 MG TAB PO PRN (17:30)
--- NOTE | 2018-10-11 18:48 | HP ---
Date/Time of Note Date/Time of Note DATE: 10/11/18 TIME: 18:40 Assessment/Plan VTE Prophylaxis SCD applied (from Nsg): Yes Pharmacological prophylaxis: heparin Lines/Catheters IV Catheter Type (from Nrsg): Peripheral IV Assessment/Plan Hospital Course Alert, interactive no distress CN II-XII intact No nystagmus RRR CTAB Abdomen is soft nt nd Ext warm without edema A/P: 78 yo female with h/o cognitive impairment, hypertension presents with vertigo and nausea and found to have MARIO ALBERTO - Her CT scan is reassuring that there is not an acute bacterial infection currently. She has completed cipro/flagyl so I will hold off on further abx - Quite possible this is a viral GI illness that will self resolve - Lastly it is a remote possibility this is a posterior stroke syndrome. I am unable to definitively exclude this on exam or history given language and cogntiive difficulties so I will pursue MRI brain to assess - Polypharmacy may be contributing as well, will hold her meds for now MARIO ALBERTO: - Likely this is prereanl - IV fluids Result Diagram: 10/11/18 1308 10/11/18 1308 Results 24hrs Laboratory Tests Test 10/11/18 13:08 White Blood Count 8.2 Red Blood Count 3.94 L Hemoglobin 11.6 L Hematocrit 36.6 L Mean Corpuscular Volume 92.9 Mean Corpuscular Hemoglobin 29.4 Mean Corpuscular Hemoglobin Concent 31.7 L Red Cell Distribution Width 12.7 Platelet Count 195 Mean Platelet Volume 13.7 H Immature Granulocytes % 0.200 Neutrophils % 74.2 Lymphocytes % 18.5 Monocytes % 5.9 Eosinophils % 0.6 Basophils % 0.6 Nucleated Red Blood Cells % 0.0 Immature Granulocytes # 0.020 Neutrophils # 6.1 Lymphocytes # 1.5 Monocytes # 0.5 Eosinophils # 0.1 Basophils # 0.1 Nucleated Red Blood Cells # 0.0 Sodium Level 138 Potassium Level 4.1 Chloride Level 102 Carbon Dioxide Level 23 Anion Gap 13 Blood Urea Nitrogen 25 H Creatinine 1.41 H Est Glomerular Filtrat Rate mL/min Glucose Level 104 Calcium Level 9.4 Total Bilirubin 0.3 Direct Bilirubin 0.00 Indirect Bilirubin 0.3 Aspartate Amino Transf (AST/SGOT) 17 Alanine Aminotransferase (ALT/SGPT) 16 Alkaline Phosphatase 60 Total Protein 7.4 Albumin 4.1 Globulin 3.30 H Albumin/Globulin Ratio 1.24 Lipase 46 HPI/ROS Admit Date/Time Admit Date/Time Oct 11, 2018 at 17:17 Hx of Present Illness 78 yo female wtih hypertension, dementia who was recently hospitalized for GI symptoms, with CT scan suggestive of mild colitis. She was discharged the following day. She has been taking cipro/flagyl. She is unable to provide a history herself. But her daughter at bedside says she has been constantly ve rtiginous and nauseous over past days. Unable to keep food dwon. Does not seem to me like she is having abdominal pain or diarrhea at all. No fevers or chills. In ED CT looks improved from prior PMH/Family/Social Past Medical History Medical History: no pertinent history Medications Current Medications Levothyroxine Sodium (Synthroid) 50 mcg BEFORE BREAKFAST PO ; Start 10/12/18 at 07:00 Risperidone (Risperdal) 0.5 mg QHS PO ; Start 10/11/18 at 21:00 Sodium Chloride 1,000 ml @ 80 mls/hr [id number] IV ; Start 10/11/18 at 17:17; Stop 10/12/18 at 05:46 Ondansetron HCl (Zofran Inj) 4 mg BRIDGE ORDER PRN IV NAUSEA/VOMITING; Start 10/11/18 at 17:30; Stop 10/12/18 at 17:29 Acetaminophen (Tylenol Tab) 650 mg ER BRIDGE PRN PO .MILD PAIN 1-3 OR TEMP; Start 10/11/18 at 17:30; Stop 10/12/18 at 17:29 Coded Allergies: No Known Drug Allergy (Unverified Allergy, Mild, 10/11/18) Past Surgical History Past Surgical Hx: no surgical history Family History Significant Family History: no pertinent family hx Social History Alcohol Use: none Smoking Status: Never smoker Drug Use: none Exam/Review of Systems Vital Signs Vitals Vital Signs Date Temp Pulse Resp B/P (MAP) Pulse Ox O2 O2 Flow FiO2 Time Delivery Rate 10/11/18 59 12 111/56 96 Room Air 18:25 (74) 10/11/18 98.3 13:02 KEYSHAWN SESAY MD Oct 11, 2018 18:48
[2018-10-11 19:00] VITALS: BP 139/63; PULSE 56; RESP 16
[2018-10-11] MEDS ORDERED: NACL 0.9% 3 ML SYG IV SCH (19:00)
[2018-10-11 19:30] VITALS: Ht 307.3 cm; Wt 61.0 kg
[2018-10-11 20:00] VITALS: BP 158/71; PULSE 56; RESP 18
[2018-10-11] MEDS ORDERED: RISPERIDONE 0.25 MG TAB PO SCH (21:00)
[2018-10-11] MEDS ORDERED: LORAZEPAM 2 MG INJ IV ONE (21:30)
[2018-10-12] MEDS ORDERED: MELATONIN 5 MG TABLET PO ONE (00:30)
[2018-10-12 02:00] VITALS: BP 121/60; PULSE 65; RESP 18
[2018-10-12] MEDS ORDERED: GLUCOSE GEL 15 GRAM TUBE BUCCAL PRN (03:00)
[2018-10-12] MEDS ORDERED: DEXTROSE 50% 50 ML SYRINGE IV PRN ×2 (03:00)
[2018-10-12] MEDS ORDERED: GLUCAGON 1 MG INJ IM PRN (03:00)
[2018-10-12] MEDS ORDERED: GLUCOSE GEL 15 GRAM TUBE PO PRN ×2 (03:00)
[2018-10-12] MEDS ORDERED: LEVOTHYROXINE 50 MCG TAB PO SCH (07:00)
[2018-10-12] MEDS: INSULIN ASPART [NOVOLOG] 3 ML PEN SC SCH ×2 (07:30→11:30)
[2018-10-12 07:45] VITALS: BP 115/57; PULSE 63; RESP 16
--- NOTE | 2018-10-12 13:10 | PDOCDIS ---
Discharge Instructions DIAGNOSIS Discharge Diagnosis Nausea CONDITION [id number] Patient Condition: [id number] Stable FOLLOW UP/APPOINTMENTS Follow-up Plan See your primary doctor in the coming weeks Cut back on the medicines you are taking (see your list I have included) KEYSHAWN SESAY MD Oct 12, 2018 13:09
--- NOTE | 2018-10-12 13:11 | DS ---
Date/Time of Note Date/Time of Note DATE: 10/12/18 TIME: 13:10 Discharge Summary Admission/Discharge Info Admit Date/Time Oct 11, 2018 at 17:17 Discharge Date/Time Discharge Diagnosis Nausea Patient Condition: Stable Hx of Present Illness 78 yo female wtih hypertension, dementia who was recently hospitalized for GI symptoms, with CT scan suggestive of mild colitis. She was discharged the following day. She has been taking cipro/flagyl. She is unable to provide a history herself. But her daughter at bedside says she has been constantly vertiginous and nauseous over past days. Unable to keep food dwon. Does not seem to me like she is having abdominal pain or diarrhea at all. No fevers or chills. In ED CT looks improved from prior Hospital Course Alert, interactive no distress CN II-XII intact No nystagmus RRR CTAB Abdomen is soft nt nd Ext warm without edema A/P: 78 yo female with h/o cognitive impairment, hypertension presents with vertigo and nausea and found to have MARIO ALBERTO She underwent brain MRI which was negative for stroke. CT of the A/P was without acute pathology. MARIO ALBERTO resolved with fluids. I suspect her symptoms may have been due to medication which I held. her symptoms resolved and she requested to be discharged to home. I encourged her family to have her follow with her [facility] doctor in the coming weeks Home Meds Active Scripts Metronidazole* (Flagyl*) 500 Mg Tablet, 500 MG PO TID for 7 Days, TAB Prov:ANUP MALDONADO MD 10/08/18 Ciprofloxacin Hcl* (Ciprofloxacin Hcl*) 500 Mg Tablet, 500 MG PO BID for 7 Days, TAB Prov:ANUP MALDONADO MD 10/08/18 Reported Medications Quetiapine Fumarate* (Quetiapine Fumarate*) 50 Mg Tablet, 50 MG PO NEEDED, TAB 10/11/18 Quetiapine Fumarate* (Quetiapine Fumarate*) 25 Mg Tablet, 25 MG PO HS, TAB 10/11/18 Levothyroxine Sodium* (Levothyroxine Sodium*) 50 Mcg Tablet, 50 MCG PO BEFORE BREAKFAST, #30 TAB 10/11/18 Risperidone* (Risperidone*) 0.5 Mg Tablet, 0.5 MG PO QHS, TAB 10/11/18 Lorazepam* (Lorazepam*) 0.5 Mg Tablet, 0.5 MG PO HS PRN for ANXIETY, TAB 10/11/18 Duloxetine Hcl* (Duloxetine Hcl*) 20 Mg Capsule.dr, 40 MG PO DAILY, #30 CAP 10/11/18 Zolpidem Tartrate* (Zolpidem Tartrate*) 5 Mg Tablet, 5 MG PO QHS PRN for INSOMNIA, #30 TAB 10/11/18 Metformin Hcl* (Metformin Hcl*) 1,000 Mg Tablet, 1000 MG PO WITH BREAKFAST DINNE, #60 TAB 10/11/18 Cholecalciferol (Vitamin D3) 5,000 Unit Tablet, 5000 UNIT PO DAILY, TAB 10/11/18 Aspirin* (Aspirin* EC) 81 Mg Tablet.dr, 81 MG PO DAILY, TAB 10/11/18 Amlodipine Besylate* (Norvasc*) 5 Mg Tablet, 5 MG PO DAILY, TAB 10/11/18 Cyanocobalamin (Vitamin B-12) (Vitamin B-12) 1,000 Mcg Capsule, 1000 MCG PO DAILY, CAP 10/11/18 Dicyclomine HCl (Dicyclomine HCl) 20 Mg Tablet, 20 MG PO Q6H PRN for NEEDED 10/11/18 Donepezil* (Donepezil*) 23 Mg Tablet, 23 MG PO DAILY, #30 TAB 10/11/18 Irbesartan-Hydrochlorothiazide (Irbesartan-Hydrochlorothiazide) 300-12.5 Mg Tab, 1 EACH PO DAILY, TAB 10/11/18 Cyclobenzaprine Hcl* (Cyclobenzaprine Hcl*) 5 Mg Tablet, 5 MG PO QHS, #60 TAB 10/11/18 Discontinued Reported Medications Cyanocobalamin* (Vitamin B12*) 500 Mcg Tab, 500 MCG PO DAILY, TAB 10/08/18 Zolpidem Tartrate* (Zolpidem Tartrate*) 5 Mg Tablet, 5 MG PO QHS PRN for INSOMNIA, #30 TAB 10/08/18 Risperidone* (Risperidone*) 0.5 Mg Tablet, 0.5 MG PO DAILY, TAB 10/08/18 Duloxetine Hcl* (Duloxetine Hcl*) 20 Mg Capsule.dr, 20 MG PO DAILY, #30 CAP 10/08/18 Donepezil* (Donepezil*) 23 Mg Tablet, 23 MG PO DAILY, #30 TAB 01/30/18 Olmesartan/Hydrochlorothiazide (Olmesartan-Hctz 40-12.5 mg Tab) 1 Each Tablet, 1 EACH PO DAILY, TAB 01/30/18 Amlodipine Besylate* (Norvasc*) 5 Mg Tablet, 5 MG PO DAILY, TAB 01/30/18 Cholecalciferol (Vitamin D3) 5,000 Unit Tablet, 5000 UNIT PO DAILY, TAB 01/30/18 Metformin Hcl* (Metformin Hcl*) 1,000 Mg Tablet, 1000 MG PO WITH BREAKFAST DINNE, #60 TAB 01/30/18 Levothyroxine Sodium* (Levothyroxine Sodium*) 50 Mcg Tablet, 50 MCG PO BEFORE BREAKFAST, #30 TAB 01/30/18 Memantine* (Namenda*) 10 Mg Tablet, 10 MG PO BID, #60 TAB 01/30/18 Quetiapine Fumarate* (Quetiapine Fumarate*) 25 Mg Tablet, 25 MG PO HS, TAB 01/30/18 Aspirin* (Aspirin* EC) 81 Mg Tablet.dr, 81 MG PO DAILY, TAB 01/30/18 Duloxetine Hcl* (Duloxetine Hcl*) 60 Mg Capsule.dr, 60 MG PO QHS, #30 CAP 01/30/18 Clonazepam* (Clonazepam*) 1 Mg Tablet, 1 MG PO QHS PRN for ANXIETY, TAB 01/30/18 Discontinued Scripts Hydrocortisone* Topical (Hydrocortisone* Topical) 2.5%-28.3 Gm Cream..g., 1 APPLIC TOP BID, #1 TUB Prov:ANUP MALDONADO MD 10/08/18 Follow-up Plan See your primary doctor in the coming weeks Cut back on the medicines you are taking (see your list I have included) Primary Care Provider Not On Staff Doctor Pending Labs Laboratory Tests Test 10/12/18 02:16 10/12/18 06:52 10/12/18 06:53 10/12/18 08:22 Bedside 110 99 Glucose mg/dL (70-220) mg/dL (70-220) White Blood 8.5 Count 10^3/ul (4.8-1 0.8) Red Blood 3.68 Count 10^6/ul (4.20- 5.40) Hemoglobin 10.7 g/dl (12.0-16. 0) Hematocrit 33.9 % (37.0-47.0) Mean 92.1 Corpuscular fl (82.0-101.0 Volume ) Mean 29.1 Corpuscular pg (29.0-33.0) Hemoglobin Mean 31.6 Corpuscular g/dl (32.0-37. Hemoglobin Conc 0) ent Red Cell 12.8 Distribution % (11.5-14.5) Width Platelet Count 158 10^3/UL (140-4 15) Mean Platelet 13.2 Volume fl (7.4-10.4) Immature 0.200 Granulocytes % % (0.001-0.429 ) Neutrophils % 50.6 % (39.0-77.0) Lymphocytes % 33.7 % (15.0-51.0) Monocytes % 11.2 % (0.0-11.0) Eosinophils % 3.5 % (0.0-7.0) Basophils % 0.8 % (0.0-2.0) Nucleated Red 0.0 Blood Cells % /100WBC (0.0-0 .0) Immature 0.020 Granulocytes # 10^3/ul (0.0-0 .031) Neutrophils # 4.3 10^3/ul (1.6-7 .5) Lymphocytes # 2.9 10^3/ul (0.8-2 .9) Monocytes # 1.0 10^3/ul (0.3-0 .9) Eosinophils # 0.3 10^3/ul (0.0-0 .5) Basophils # 0.1 10^3/ul (0.0-0 .1) Nucleated Red 0.0 Blood Cells # 10^3/ul (0.0-0 .0) Sodium Level 139 mmol/L (135-14 4) Potassium 3.9 Level mmol/L (3.5-5. 1) Chloride Level 105 mmol/L (97-110 ) Carbon Dioxide 26 Level mmol/L (21-31) Anion Gap 8 (5-13) Blood Urea 20 Nitrogen mg/dl (7-20) Creatinine 1.07 mg/dl (0.44-1. 00) Est Glomerular mL/min (>60) Filtrat Rate mL/min Glucose Level 89 mg/dl (70-220) Hemoglobin A1c 5.7 % (0-5.9) Calcium Level 8.7 mg/dl (8.4-10. 2) Total 0.3 Bilirubin mg/dl (0.2-1.3 ) Direct 0.00 Bilirubin mg/dl (0.00-0. 20) Indirect 0.3 Bilirubin mg/dl (0-1.1) Aspartate Amino 18 Transf (AST/SGO IU/L (15-46) T) Alanine 20 Aminotransferas IU/L (13-69) e (ALT/SGPT) Alkaline 47 Phosphatase IU/L (42-121) Total Protein 6.0 g/dl (6.1-8.1) Albumin 3.3 g/dl (3.3-4.9) Globulin 2.70 g/dl (1.3-3.2) Albumin/Globuli 1.22 n Ratio Test 10/12/18 12:19 Bedside 110 Glucose mg/dL (70-220) KEYSHAWN SESAY MD Oct 12, 2018 13:11
[2018-10-12] MEDS ORDERED: SOD CHLORIDE 0.9% 500 ML IV ONE (13:30)
[2018-10-12 14:30] VITALS: BP 168/74; PULSE 66; RESP 16
[2018-10-12 15:05] VITALS: BP 140/65; PULSE 63
== END 2018-10-12 17:10 | disposition home or self-care (01) ==
LOC: E/R 12:22 → SUATTDRO 16:45 → PP2 17:17
PROVIDERS: ADMIT Internal Medicine; ATTEND Internal Medicine
DX: R11.0 Nausea (principal); G30.9 Alzheimer's disease, unspecified; F02.80 Dementia in other diseases classified elsewhere, unspecified severity, without behavioral disturbance, psychotic disturbance, mood disturbance, and anxiety; N17.9 Acute kidney failure, unspecified; I10 Essential (primary) hypertension; Z79.82 Long term (current) use of aspirin
CPT/HCPCS: 36415; 70551; 74176; 80053; 82962; 83036; 83690; 85025; 96361; 96374; 96375; 97162; 99285; G0378; J1815; J2060; J2270; J2405; J7030; J7040